=== PATIENT | male | born 1960 | race Caucasian/White ===

== ENCOUNTER 2019-08-02 15:37 | Emergency (ER) | payer BC ==
[~2019-08-02] VITALS: Ht 172.7 cm; Wt 81.0 kg
[~2019-08-02 15:37] MED LIST: LEVO75TA PO; LISI40TA4 PO; METF-517 PO; METO50TA7 PO; NITR0.4T51 SL; PER5325T PO; SIMV-42 PO
--- NOTE | 2019-08-02 17:40 | NUR ---
Pt has attempted to give a UA twice. I advised he drink the water provided and try again later.
[2019-08-02] MEDS ORDERED: LORazepam 1 MG tablet PO ONE (17:50)
[2019-08-02 18:19] LABS: CLARITY,URINE CLEAR (Clear); COLOR,URINE YELLOW (Yellow); GLUCOSE, URINE 100 mg/dl (Neg); KETONES,URINE TRACE mg/dl (Neg); LEUKOCYTE ESTERASE ,URINE NEGATIVE (Neg); NITRITES, URINE NEGATIVE (Neg); OCCULT BLOOD,URINE SMALL (Neg); PH,URINE 5.5 (4.8-8.0); PROTEIN,URINE >=300 mg/dl (Neg); UROBILINOGEN,URINE 0.2 E.U/dL (0.2-1.0)
[2019-08-02 18:23] LABS: UA COLLECTION TYPE CLN CATCH MIDSTREAM
[2019-08-02 18:24] LABS: BACTERIA,URINE NONE SEEN /HPF (Neg); MUCUS STRANDS FEW /LPF (Neg); RBC,URINE NONE SEEN /HPF (0-2); SQUAMOUS EPITHELIAL CELL,UR NONE SEEN /LPF (FEW); WBC,URINE 0-4 /HPF (0-4)
[2019-08-02 18:49] LABS: BASOPHILS # (AUTO) 0.1 X10'3 (0-0.2); BASOPHILS % (AUTO) 1.3 % (0-1); EOSINOPHILS # (AUTO) 0.2 X10'3 (0-0.9); EOSINOPHILS % (AUTO) 2.3 % (0-6); HEMATOCRIT 43.4 % (42.0-52.0); HEMOGLOBIN 14.6 g/dl (14.0-17.9); LYMPHOCYTES # (AUTO) 1.6 X10'3 (1.1-4.8); LYMPHOCYTES % (AUTO) 22.4 % (21-51); MEAN CORPUSCULAR HEMOGLOBIN 29.5 PG (27.0-31.0); MEAN CORPUSCULAR HGB CONC 33.6 g/dL (33.0-36.5); MEAN CORPUSCULAR VOLUME 87.7 FL (78-98); MEAN PLATELET VOLUME 8.5 FL (7.4-10.4); MONOCYTES # (AUTO) 0.7 X10'3 (0-0.9); MONOCYTES % (AUTO) 9.3 % (2-12); NEUTROPHILS # (AUTO) 4.5 X10'3 (1.8-7.7); NEUTROPHILS % (AUTO) 64.7 % (42-75); PLATELET COUNT 225 X10'3 (140-440); RED BLOOD COUNT 4.95 X10'6 (4.70-6.10); RED CELL DISTRIBUTION WIDTH 14.9 % (11.5-14.5)
[2019-08-02 19:10] LABS: ALANINE AMINOTRANSFERASE 17 U/L (12-78); ALBUMIN 2.6 G/DL (3.4-5.0); ALBUMIN/GLOBULIN RATIO 0.6 (1.1-1.5); ALKALINE PHOSPHATASE 155 IU/L (46-116); ANION GAP 11 (8-16); ASPARTATE AMINO TRANSFERASE 16 U/L (10-37); BILIRUBIN,TOTAL 0.2 MG/DL (0.1-1.0); BLOOD UREA NITROGEN 26 MG/DL (7-18); BUN/CREATININE RATIO 12.9 (5.4-32.0); CALCIUM 8.4 MG/DL (8.5-10.1); CHLORIDE 100 MMOL/L (99-107); CREATININE 2.01 MG/DL (0.60-1.10); GLUCOSE 121 MG/DL (70-104); POTASSIUM 3.8 MMOL/L (3.5-5.1); SODIUM 135 MMOL/L (135-145); TOTAL CARBON DIOXIDE 24.1 MMOL/L (24-32); TOTAL PROTEIN 6.9 G/DL (6.4-8.2); eGFR 34 ML/MIN
[2019-08-02 19:19] LABS: ETHANOL 0.015 GM/DL (0.0-0.010)
[2019-08-02 19:22] LABS: URINE AMPHETAMINE SCREEN NEGATIVE (Neg); URINE BARBITUATE SCREEN NEGATIVE (Neg); URINE BENZODIAZEPINES SCREEN NEGATIVE (Neg); URINE CANNABINOID SCREEN NEGATIVE (Neg); URINE COCAINE SCREEN NEGATIVE (Neg); URINE METHADONE SCREEN NEGATIVE (Neg); URINE OPIATE SCREEN POSITIVE (Neg); URINE PHENCYCLIDINE SCREEN NEGATIVE (Neg)
--- NOTE | 2019-08-02 19:44 | NUR ---
PT EATING DINNER, KIERRA WELL, NO N/V
--- NOTE | 2019-08-02 19:59 | NUR ---
PT IS 58 YEAR OLD MALE SAID HE WAS BROUGHT FROM WALL BY , "MY NEIGHBOR CALLED BECAUSE I TOLD THEM I WAS GOING TO SHOOT MYSELF WITH MY SHOT GUN", PT SAID HE DOES HAVE GUNS IN HIM HOME, PT LIVES BY HIMSELF AND IS TIRED OF "FEELING RESTLESS AND EMOTIONAL...I JUST START CRYING", PT SAID HE HAS FELT RESTLESS AND EMOTIONAL AFTER HAVE A STROKE 4 YEARS AGO, HE WOULD ALSO HELP ORGANIZING HIS MEDS AT HOME, PT IS CALM AND COOPERATIVE, GCS 15, RESP EVEN AND UNLABORED
[2019-08-02] MEDS ORDERED: METO50TA17 PO (20:19)
[2019-08-02] MEDS ORDERED: ATOR80TA PO (20:19)
[2019-08-02] MEDS ORDERED: QUET25TA PO (20:19)
[2019-08-02] MEDS ORDERED: GABA600T13 PO (20:19)
[2019-08-02] MEDS ORDERED: CLOP75TA15 PO (20:19)
--- NOTE | 2019-08-02 21:28 | NUR ---
PT HAS BEEN EVALUATED BY [facility] CLINICIAN, PT ASKING FOR MORE ATIVAN "TO HELP ME SLEEP",
[2019-08-02] MEDS ORDERED: nitroGLYCERIN 0.4mg SUBLingual tab SL PRN (21:45)
--- NOTE | 2019-08-02 21:54 | NUR ---
PT IS SLEEPING, RESP EVEN AND UNLABORED
[2019-08-02] MEDS: QUEtiapine 25mg tablet PO SCH (22:04)
--- NOTE | 2019-08-02 22:58 | NUR ---
PT IS SLEEPING, RESP EVEN AND UNLABORED
--- NOTE | 2019-08-02 23:59 | NUR ---
PT IS SLEEPING, RESP EVEN AND UNLABORED
--- NOTE | 2019-08-03 06:41 | NUR ---
Pt sleeping on right side. No distress noted.
[2019-08-03] MEDS ORDERED: clopidogrel 75mg tablet PO SCH (08:00)
[2019-08-03] MEDS ORDERED: levoTHYROXINE 100mcg tablet PO SCH (08:00)
[2019-08-03] MEDS: gabapentin 300mg capsule PO SCH ×3 (08:46→20:08)
[2019-08-03] MEDS: metFORMIN 500mg tablet PO SCH ×2 (08:47→20:08)
[2019-08-03] MEDS: metoprolol tartrate 50mg tablet PO SCH ×2 (08:49→20:08)
[2019-08-03] MEDS: LORazepam 1 MG tablet PO PRN ×2 (10:01→16:13)
[2019-08-03] MEDS ORDERED: nicotine 21mg patch - 24 hr TD ONE (11:10)
--- NOTE | 2019-08-03 13:40 | NUR ---
pt sitting up in bed eating lunch. Calm and cooperative.
--- NOTE | 2019-08-03 14:56 | NUR ---
pt resting quietly in bed.
--- NOTE | 2019-08-03 16:28 | NUR ---
pt walked up to RN station and verbalized his anxiety about being in the unit. Pt was tearful and stating his frustration about being in the hospital. RN sypathized with him. He returned back to bed. Pt asked RN for something for anxiety. RN administered PRN Ativan and provided pt with a snack per pt request. pt now laying in bed quietly.
[2019-08-03 17:05] VITALS: BP_DIAS 89
--- NOTE | 2019-08-03 19:58 | NUR ---
ANH BRAMBILA MC KAY MACHINE OPERATOR FABIOLA SALAZAR CALLED FOR PT CURRENT MEDICATION LIST FOR PT PLACEMENT.
[2019-08-03 20:08] VITALS: BP_SYST 171
[2019-08-03] MEDS: QUEtiapine 25mg tablet PO SCH (20:08)
--- NOTE | 2019-08-03 20:22 | NUR ---
Client to be admitted to [facility] RM 329 for Depression NOS per LOBO Clark/Eduard Hearn MD.
[2019-08-03] MEDS ORDERED: atorvastatin 20mg tablet PO SCH (21:00)
== END 2019-08-03 20:22 ==
LOC: ER 15:38
DX: F41.9 Anxiety disorder, unspecified (principal); Z60.2 Problems related to living alone; Z86.73 Personal history of transient ischemic attack (TIA), and cerebral infarction without residual deficits; Z79.899 Other long term (current) drug therapy
CPT/HCPCS: 36415; 80053; 80305; 80320; 81001; 84443; 85025; 99285

== ENCOUNTER 2019-08-03 20:51 | Inpatient (IN) | payer BC ==
[~2019-08-03] VITALS: Ht 172.7 cm; Wt 80.1 kg
[~2019-08-03 20:51] MED LIST changes: +ATOR80TA PO; +CLOP75TA15 PO; +GABA600T13 PO; -LISI40TA4 PO; +METO50TA17 PO; -METO50TA7 PO; -PER5325T PO; +QUET25TA PO; -SIMV-42 PO
[2019-08-04] MEDS ORDERED: acetaminophen 325mg tablet PO PRN (03:00)
[2019-08-04] MEDS ORDERED: magnesium hydroxide 30ml (MOM) UD suspension PO PRN (03:05)
[2019-08-04] MEDS ORDERED: mag hydrox/Alum hydrox/simeth 30ml oral suspension PO PRN (03:10)
--- NOTE | 2019-08-04 03:42 | NUR ---
ADMIT NOTE: Client BIB EMS after neighbors alerted police client made suicidal statements, and threats to shoot others, while in possession of a firearm. Client reported changes in behavior after having a CVA four years ago. Client states he "needs help", feels anxious and depressed. Reports increasing thoughts of suicide. Client arrived on the unit at 21:00 in a wheelchair, accompanied by Naheed Rubi. Affect and mood are anxious and depressed. Client is disheveled. Clients has unsteady gait and will be provided a wheelchair. Client uses cane at home. Physical assessment performed by Solis Rubi RN. Client was cooperative. Fell asleep shortly after admission.
[2019-08-04] MEDS ORDERED: nitroGLYCERIN 0.4mg SUBLingual tab SL PRN (04:05)
[2019-08-04] MEDS: gabapentin 300mg capsule PO SCH ×3 (07:51→21:00)
[2019-08-04] MEDS: metFORMIN 500mg tablet PO SCH ×2 (07:51→21:02)
[2019-08-04] MEDS: metoprolol tartrate 50mg tablet PO SCH ×2 (07:51→21:01)
[2019-08-04] MEDS: clopidogrel 75mg tablet PO SCH (07:52)
[2019-08-04] MEDS: levoTHYROXINE 100mcg tablet PO SCH (07:52)
[2019-08-04 08:00] VITALS: BP 137/63
[2019-08-04 13:02] LABS: HEMOGLOBIN A1C 6.8 % (4.5-6.2)
[2019-08-04 13:11] LABS: CHOL/HDL RATIO 6.3 (0.00-4.99); CHOLESTEROL 245 MG/DL (0-200); HDL CHOLESTEROL 39 MG/DL (35-60); LDL CHOLESTEROL 145 MG/DL (50-100); TRIGLYCERIDES 335 MG/DL (20-135)
--- NOTE | 2019-08-04 15:40 | NUR ---
Nursing Progress Note: Sixto Legal hold: 5150 expires 08/06 @ 2100 Client on voluntary/involuntary status for DTS. Report received from nurse with use of SERENE Ely RN. Why are they here: Client BIB EMS after neighbors alerted police client made suicidal statements, and threats to shoot others, while in possession of a firearm. Client reported changes in behavior after having a CVA four years ago. Client states he "needs help", feels anxious and depressed. Reports increasing thoughts of suicide. Assessment What has happened this shift: Patient sleeping at change of shift. Ambulated with assistance of FWW to [facility] room for breakfast. Requests information r/t admission to the unit. Has denied he was ever suicidal, states I was just cleaning my shot gun. Later in the day he inadvertently admits he was heavily drinking prior to cleaning his shot gun. Paitent states he would never harm himself, neighbors where concerned because everytime I try to speak, I just end up crying.. Compliant with 1:1 physical and MH assessment. States he has been sick with a cough for 3 weeks, Lung sounds clear throughout, reports thick greenish sputum (not observed by this card writer hand). Patient is also a heavy smoker. States he suffers with depression, but it is not worse than usual. Patient revealed he is fearful that he is loosing his memory, I only agreed to come in because I need help at home and I haven;t been able to get an S worker to help me with medications, dressing, and other needs. Spoke with sister on phone, appears to have good support. S/I, H/I: Denies A/VH: Denies Sleep: 6.25 ADL's: With assistance, did not shower today. Group attendance: Yes Were meds taken: Yes Any med S/E None observed Mental Status Exam Appearance: clean scrubs, hair brushed, no shower today Eye contact: direct Behavior:cooperative, gaurded Speech: clear, normal rate/rhythm Mood: Dispair Affect: blunted (may be related to effects from stroke) Thought process: Linear Thought Content: getting home Cognition: A & O X 4 (displays some memory impairment) Insight: Poor Judgment: Poor (drinking whiskey, cleaning firearm) Interventions PRN's used: None Therapeutic interventions: 1:1 therapeutic communication. Provide a safe and calm environment, provided assistance as needed with ADLs. Q 15 minute safety checks. Medication administration, evaluation of effectiveness, education and monitor for SE. Restraints/seclusion/emergency medication: N/A Justification of Continued Inpatient Treatment: Patient continues to have significant needs related to physical restriction s/p CVA. Admits depression 03/30, without adequate control of depressive symptoms patient could easily decompensate requiring readmission.
[2019-08-04] MEDS: LORazepam 1 MG tablet PO PRN (17:07)
[2019-08-04 19:46] VITALS: BP 147/82
[2019-08-04] MEDS: atorvastatin 20mg tablet PO SCH (21:00)
[2019-08-04] MEDS: zolpidem 5mg tablet PO SCH (21:01)
[2019-08-04] MEDS: QUEtiapine 25mg tablet PO SCH (21:01)
--- NOTE | 2019-08-05 03:44 | NUR ---
Nursing Progress Note: Legal hold: 5150 expires 08/06 @ 2100 Client on involuntary status for DTS. Report received from Marc ROSE with use of SBAR. Why are they here: Client BIB EMS after neighbors alerted police client made suicidal statements, and threats to shoot others, while in possession of a firearm. Client reported changes in behavior after having a CVA four years ago. Client states he "needs help", feels anxious and depressed. Reports increasing thoughts of suicide. Assessment What has happened this shift: Pt in room at start of shift. Immediately asked for PRN Ativan which he had at 1700. Pt started crying when talking. Per pt he can't help crying and it does not reflect the way he feels. He had only that one episode of crying this shift. The rest of the shift his affect was appropriate. Per pt he expects to return to his home in [place]. he needs an supervisor dry cleaning because his nephew just left. "all I need to someone to help me get up in the morning and to help me with my medications I get confused." Pt verbalized concern about sleeping "I have not had good sleep for weeks." Pt was asleep by HS med pass awoke easily immediately asked for Ativan. Accepted pleasantly that it was not due after meds pt went back to sleep. S/I, H/I: Denies A/VH: Denies Sleep: asleep at this time ADL's: With assistance, said he would like a shower in the AM. Group attendance: Went to group room for snack Were meds taken: Yes Any med S/E None observed Mental Status Exam Appearance: clean scrubs, hair brushed, Eye contact: direct Behavior:cooperative, guarded Speech: clear, normal rate/rhythm Mood: Depressed Affect: blunted Thought process: Linear Thought Content: getting home Cognition: A & O X 4 (displays some memory impairment) Insight: Poor Judgment: Poor Interventions PRN's used: None Therapeutic interventions: 1:1 therapeutic communication. Provide a safe and calm environment, provided assistance as needed with ADLs. Q 15 minute safety checks. Medication administration, evaluation of effectiveness, education and monitor for SE. Restraints/seclusion/emergency medication: N/A Justification of Continued Inpatient Treatment: Patient continues to have significant needs related to physical restriction s/p CVA. Admits depression 03/30, without adequate control of depressive symptoms patient could easily decompensate requiring readmission.
[2019-08-05] MEDS: metoprolol tartrate 50mg tablet PO SCH ×2 (07:51→20:24)
[2019-08-05] MEDS: gabapentin 300mg capsule PO SCH ×3 (07:52→20:22)
[2019-08-05] MEDS: levoTHYROXINE 100mcg tablet PO SCH (07:52)
[2019-08-05] MEDS: omega-3 acid ethyl esters 1GM capsule PO SCH ×2 (07:52→20:22)
[2019-08-05] MEDS: metFORMIN 500mg tablet PO SCH ×2 (07:52→20:23)
[2019-08-05] MEDS: clopidogrel 75mg tablet PO SCH (07:52)
[2019-08-05] MEDS ORDERED: sertraline 25mg tablet PO SCH (08:00)
[2019-08-05] MEDS: LORazepam 1 MG tablet PO PRN (08:07)
[2019-08-05 08:19] VITALS: BP 154/96
[2019-08-05] MEDS: hydrOXYzine 25 MG tablet PO PRN (10:44)
--- NOTE | 2019-08-05 12:16 | NUR ---
Nursing Progress Note: Legal hold: 5150 expires 08/06 @ 2100 Client on involuntary status for DTS. Report received from Gabriela ROSE with use of SBAR. Why are they here: Client BIB EMS after neighbors alerted police client made suicidal statements, and threats to shoot others, while in possession of a firearm. Client reported changes in behavior after having a CVA four years ago. Client states he "needs help", feels anxious and depressed. Reports increasing thoughts of suicide. Assessment What has happened this shift: Pt's FSBG this am AC breakfast was 112. Pt stated he felt "tired." Pt ambulated to dining room with FWW for breakfast, pt has some mild left sided weakness. Pt cooperative with medications. Pt requested prn Ativan during breakfast stating that he felt anxious. Ativan 1 mg administered at 0807 with good effect. Pt denied depression, SI/HI/AH/VH, stated "I'm good, the Zoloft is working, I'm ready to go home." At around 1030, pt approached this RN to ask for another Ativan, "they're as needed and I need one, I just found out I'm not going home today." Pt's face contorted and he became tearful as he continued to walk back to his room. Explained that his prn Ativan order was Q 6H PRN, offered some Atarax. Pt was agreeable, stated, "I need something." Medicated with Atarax 50 mg at 1044. Provided some active listening. Pt expressed his frustration over his living situation. Pt stated his stepson helped him organize his pills but "he just up and left me." Pt states that he has trouble getting dressed, "I can't turn my shirts right side up." Pt grabbed a long sleeved shirt he had sitting on the bed next to him. He actually was able to get the sleeves out of the shirt, commented so. Pt stated that it was an easy shirt. Pt states he needs a worker and he needs help finding one. Pt states that his sister is not able to help him organize his pills. Pt stated that he has a neighbor in the same situation, they both need a caregiver. Pt states his income is $1600 per month. S/I, H/I: Pt denies A/VH: Pt denies Sleep: Pt slept 8.75 hours per noc shift report ADL's: Needs some help with dressing, ambulates with FWW Group attendance: No, too upset to go to morning group today. Were meds taken: Yes Any med S/E: None noted or reported Mental Status Exam Appearance: clean scrubs, hair brushed Eye contact: Good Behavior: Cooperative, mildly guarded Speech: clear, audible Mood: Anxious Affect: Labile, bursts into tears frequently, reportedly an effect of CVA in 2015 Thought process: Linear Thought Content: Needs a caregiver, wants to go home Cognition: A/O X 4, some forgetfulness/short term memory impairment Insight: Poor Judgment: Poor Interventions PRN's used: Ativan 1 mg, Atarax 50 mg Therapeutic interventions: 1:1 assessment, establishment of rapport, active listening, therapeutic communication, medication administration/education/monitoring, maintained a safe, therapeutic environment, provided assistance as needed with ADLs,Q 15 minute safety checks. Restraints/seclusion/emergency medication: N/A Justification of Continued Inpatient Treatment: Pt needs crisis stabilization and medication adjustment and monitoring in a safe,therapeutic environment as well as a safe discharge plan once stable for pt safety and to prevent readmission.
--- NOTE | 2019-08-05 12:50 | NUR ---
Pt's FSBG was 154 AC lunch, pt stated, "that's because I had some hot chocolate." Addendum: 08/05/19 at 1251 by Tiffany Morris RN (Lee) Amended: Links added.
[2019-08-05] MEDS: acetaminophen 325mg tablet PO PRN (12:55)
[2019-08-05 20:00] VITALS: BP 151/81
[2019-08-05] MEDS: zolpidem 5mg tablet PO SCH (20:23)
[2019-08-05] MEDS: atorvastatin 20mg tablet PO SCH (20:23)
[2019-08-05] MEDS: QUEtiapine 25mg tablet PO SCH (20:24)
--- NOTE | 2019-08-06 01:20 | NUR ---
Nursing Progress Note: Legal hold: 5150 expires 08/06 @ 2100 Client on involuntary status for DTS. Report received from ROSE Tran with use of SBAR. Why are they here: Client BIB EMS after neighbors alerted police client made suicidal statements, and threats to shoot others, while in possession of a firearm. Client reported changes in behavior after having a CVA four years ago. Client states he "needs help", feels anxious and depressed. Reports increasing thoughts of suicide. Assessment What has happened this shift: Patient is in his room sleeping at change of shift. he is later greeted in the hallway. Patient denies depression and reports "good" mood, but has bouts of crying on and off during interaction. Patients reported mood is not congruent with his affect. He denies SI and states it was a miscommunication with his friend. "States "I was cleaning my gun and my friend thought I was going to put it in my mouth and kill myself." "I was not going to shoot myself, I was drinking." Patient denies current SI, AH,VH, HI. He is complaint with HS medications. Patient does get up and hits call light several times this evening, each time patient appeared confused and even wandered the wilson and had to be redirected back to his correct room. Patient each time hitting the call light asked staff "Where is the designated smoking area?" He had to be reminded he was in a hospital. patient did eventually fall asleep after being assisted into bed and provided an warm blanket. S/I, H/I: Denies A/VH: Denies Sleep: Currently sleeping, see sleep assessment ADL's: With assistance Group attendance: No groups this shift Were meds taken: Yes Any med S/E None observed Mental Status Exam Appearance: Unkempt Eye contact: Direct Behavior: Tearful during interactions, appears confused later in the evening Speech: Clear, normal rate/rhythm Mood: Depressed (However patient denies, and reports "Good") Affect: Blunted, depressed, not congruent with stated mood Thought process: Linear, appeared confused during later evening Thought Content: Getting sleep Cognition: A & O X 4 (displays some memory impairment) Insight: Poor Judgment: Poor Interventions PRN's used: None Therapeutic interventions: 1:1 therapeutic communication. Provide a safe and calm environment, provided assistance as needed with ADLs. Q 15 minute safety checks. Medication administration, evaluation of effectiveness, education and monitor for SE. Restraints/seclusion/emergency medication: N/A Justification of Continued Inpatient Treatment: Patient continues to have significant needs related to physical restriction s/p CVA. Admits depression 03/30, without adequate control of depressive symptoms patient could easily decompensate requiring readmission.
[2019-08-06 08:00] VITALS: BP 127/74
[2019-08-06] MEDS ORDERED: sertraline 50mg tablet PO SCH (08:00)
[2019-08-06] MEDS: clopidogrel 75mg tablet PO SCH (08:26)
[2019-08-06] MEDS: metFORMIN 500mg tablet PO SCH ×2 (08:26→20:16)
[2019-08-06] MEDS: levoTHYROXINE 100mcg tablet PO SCH (08:26)
[2019-08-06] MEDS: gabapentin 300mg capsule PO SCH ×3 (08:26→20:16)
[2019-08-06] MEDS: metoprolol tartrate 50mg tablet PO SCH ×2 (08:26→20:16)
[2019-08-06] MEDS: acetaminophen 325mg tablet PO PRN (08:27)
[2019-08-06] MEDS: omega-3 acid ethyl esters 1GM capsule PO SCH ×2 (08:31→20:16)
[2019-08-06] MEDS: nicotine 21mg patch - 24 hr TD SCH (08:54)
--- NOTE | 2019-08-06 11:21 | NUR ---
PHONE CALL TO SISTER Called Ct's sister, Amber Nino (ph# [phone]) to gather additional information. Left message requesting a call back. RUTH Lawrence
--- NOTE | 2019-08-06 14:13 | NUR ---
PSYCHOSOCIAL ASSESSMENT Roberta is a 58 y/o single male who was placed on 5150 for danger to self and others. Roberta lives alone in [place]. Ct reported he was cleaning one of his guns and his neighbor thought he was suidical. Per record review, Ct at some point had put a gun in his mouth. It was also reported that Ct had grabbed a gun and threatened to shoot someone. Ct told principal technical writer that his guns are locked in a safe in his house and that his neighbor is going to take them for safekeeping. Ct reported he needs help at home managing his home, shopping, medications, etc. He reported he had hired someone in the past to help him and it did not work out. He reported he had applied for IHSS previously and made too much money to qualify. Ct stated he wants to "get some sleep and east some good food" when asked about his short term goals. Roberta was not very forthcoming with information. There were times where what he told principal technical writer contradicted what he had told others (e.g; he had previously stated his neighbor had already removed the guns from his home whereas he told principal technical writer the guns were locked in his gun safe in his home). RUTH Lawrence Addendum: 08/06/19 at 1413 by Zeynep Wagner Amended: Links added.
--- NOTE | 2019-08-06 17:16 | NUR ---
Nursing Progress Note: Legal hold: 5250 Client on involuntary status for DTS. Report received from Gladis ROSE with use of SBAR. Why are they here: Client BIB EMS after neighbors alerted police client made suicidal statements, and threats to shoot others, while in possession of a firearm. Client reported changes in behavior after having a CVA four years ago. Client states he "needs help", feels anxious and depressed. Reports increasing thoughts of suicide. Assessment What has happened this shift: Pt stated that he was depressed today because he can't sleep, "sick and tired 'cause I can't sleep, sleep deprivation is the worst." Pt stated that he takes Rosalina [place] plus at home to help him sleep "or whatever I can get." Addressed episode of confusion last night after taking Ambien with pt putting the call light on multiple times to ask where the designated smoking area was. Pt stated that "I was dreamin' I was smokin'. I never dreamed about smoking before." Asked pt if he would like a nicotine patch. Pt replied, "I already have one, it's not working." Pt lifted up his shirt to show this RN a nicotine patch dated 08/03/19 on his left shoulder. Removed old patch, obtained order for nicotine patch 21 mg daily and applied to pt's right shoulder. Pt expressed thanks. When this RN went to leave the room, pt asked, "Excuse me? I haven't gotten anything for sleep today." Educated pt that we don't give sleeping pills to pts during the day. Pt said "okay, I'm going to try and sleep." This RN did not note any episodes of tearfulness today. Pt's finger stick blood glucose has remained stable. FSBG AC breakfast was 110, AC lunch was 111. Pt continues on metformin. Discussed stable blood sugars with LOBO Akhtar who ordered to decrease fingersticks to once daily fasting AC breakfast. Received phone call from pt's sister and RIZWANA Nino. Sister states that she lives in [place]. Sister reported that pt owns the house in [place] but that it isn't worth much. She states that it is a mess and that pt just throws garbage on the floor. Sister confirms that pt's stepson had been living with him but that it wasn't a good situation as step son, his , and his 3 kids had all been living at the house. The kids and the would not even speak to the patient and they left the house dirtier than it was before. Amber expressed frustration at her brother not being able to qualify for medi-tommy and IHSS because of his income. She had tried to get him into [facility] in [place] to be closer to her so she could help more but [facility] does not allow smoking and pt adamantly refuses to quit. Sister will call SW to ask for any list of board and cares they may have in the area that may allow smoking. Sister plans to come and visit on . 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 He hurt his hip while walking around in the [place] there and so does receive some kind of disability money that pt calls workman's comp as a result. Pt told LOBO Akhtar that he fell in the snow before coming here and his right hip has hurt worse since. PA ordered R hip X-ray. Pt also has new orders to increase Seroquel to 50 mg HS, add Lamictal 25 mg HS, and decrease Zoloft back down to 25 mg daily. S/I, H/I: Pt denies A/VH: Pt denies Sleep: Pt slept 4.75 hours per noc shift report ADL's: Needs some help with dressing, ambulates with FWW Group attendance: Yes Were meds taken: Yes Any med S/E: None noted or reported Mental Status Exam Appearance: clean scrubs, hair brushed Eye contact: Good Behavior: Cooperative, participated more in unit activities today. Speech: clear, audible Mood: Depressed Affect: Blunted Thought process: Linear Thought Content: upset about not sleeping well, wants a cigarette. Cognition: A/O X 4, some forgetfulness/short term memory impairment Insight: Poor Judgment: Poor Interventions PRN's used: Tylenol 650 mg Therapeutic interventions: 1:1 assessment, active listening, therapeutic communication, medication administration/education/monitoring, maintained a safe, therapeutic environment, provided assistance as needed with ADLs,encouragement to attend groups, positive reinforcement, Q 15 minute safety checks. Restraints/seclusion/emergency medication: N/A Justification of Continued Inpatient Treatment: Pt needs crisis stabilization and medication adjustment and monitoring in a safe,therapeutic environment as well as a safe discharge plan once stable for pt safety and to prevent readmission.
[2019-08-06 20:00] VITALS: BP 171/79
[2019-08-06] MEDS: atorvastatin 20mg tablet PO SCH (20:15)
[2019-08-06] MEDS: zolpidem 5mg tablet PO SCH (20:18)
[2019-08-06] MEDS: QUEtiapine 25mg tablet PO SCH (20:18)
[2019-08-06] MEDS: lamoTRIgine 25mg tablet PO SCH (20:18)
--- NOTE | 2019-08-07 04:15 | NUR ---
Nursing Progress Note: Legal hold: 5250 Client on involuntary status for DTS. Report received from MARIE Navarro with use of SBAR. Why are they here: Client BIB EMS after neighbors alerted police client made suicidal statements, and threats to shoot others, while in possession of a firearm. Client reported changes in behavior after having a CVA four years ago. Client states he "needs help", feels anxious and depressed. Reports increasing thoughts of suicide. Assessment What has happened this shift: Patient walking the unit with his FFW at change of shift. He ambulates steadily with the FFW to the recreation room where he watches TV and interacts with other peers for a bit before returning to his room. he is agreeable to 1:1 at his bedside. Patient denies SI, HI, AH, VH but is still reporting depression and difficulty sleeping. Patient is up and down from room to group room throughout the evening interacting with others appropriately. He is compliant with medication pass and verbalizes understanding medication changes when educated about them. patient does not want to remove Nicotine Patch this evening with understanding if he has difficulty sleeping nurse can be informed and it can be removed. Patient requests ear plugs this evening in hopes to sleep better. Patient is noted to not get up this evening or to hit call light. No confusion noted this evening as well. S/I, H/I: Denies A/VH: Denies Sleep: Currently sleeping, see sleep assessment ADL's: With minimal assistance for dressing Group attendance: No groups this shift Were meds taken: Yes Any med S/E None observed Mental Status Exam Appearance: Well groomed, wearing green scrubs Eye contact: Direct Behavior: Calm, cooperative Speech: Clear, normal rate/rhythm Mood: Depressed, patient confirmed this this evening Affect: Blunted Thought process: Linear Thought Content: Getting sleep Cognition: A & O X 4 (displays some memory impairment) Insight: Poor Judgment: Poor Interventions PRN's used: None Therapeutic interventions: 1:1 therapeutic communication. Provide a safe and calm environment, provided assistance as needed with ADLs. Q 15 minute safety checks. Medication administration, evaluation of effectiveness, education and monitor for SE. Restraints/seclusion/emergency medication: N/A Justification of Continued Inpatient Treatment: Patient continues to have significant needs related to physical restriction s/p CVA. Admits depression 03/30, without adequate control of depressive symptoms patient could easily decompensate requiring readmission.
[2019-08-07] MEDS: levoTHYROXINE 100mcg tablet PO SCH (07:38)
[2019-08-07] MEDS: nicotine 21mg patch - 24 hr TD SCH (07:38)
[2019-08-07] MEDS: LORazepam 1 MG tablet PO PRN ×2 (07:38→16:48)
[2019-08-07] MEDS: metFORMIN 500mg tablet PO SCH ×2 (07:38→21:17)
[2019-08-07] MEDS: metoprolol tartrate 50mg tablet PO SCH ×2 (07:38→21:18)
[2019-08-07] MEDS: gabapentin 300mg capsule PO SCH ×3 (07:39→21:17)
[2019-08-07] MEDS: clopidogrel 75mg tablet PO SCH (07:39)
[2019-08-07] MEDS: omega-3 acid ethyl esters 1GM capsule PO SCH ×2 (07:50→21:17)
[2019-08-07] MEDS: sertraline 50mg tablet PO SCH (07:50)
[2019-08-07 08:57] VITALS: BP 159/87
--- NOTE | 2019-08-07 12:03 | NUR ---
LEFT MSG FOR SISTER Left message asking Ct's sister, Amber (ph# [phone]) to call me back regarding Ct's guns and his Rx for Nudexta. RUTH Lawrence
--- NOTE | 2019-08-07 15:36 | NUR ---
PHONE CALL W/SISTER Amber (ph# [phone]) returned video game script writer's call. She reported she has to check with [facility] to see if Sixto's insurance will cover the Nudexta. She reported that she and her can remove the guns from Sixto's home this weekend as long as it is not snowing as they do not have a vehicle equipped for the snow. She reported Sixto was previously interested in [employer] for housing but decided he did not want to apply there because it is no smoking. She reported she spoke to Sixto today and he mentioned he no longer wants to smoke. Surgical Nurse will try to get an application for [employer] and assist him with it. Amebr reported if Sixto lives in [place] she would be able to help him more. She reported his step-son and his and 3 kids had been living with Sixto until beginning of Jun. She reported there is a neighbor couple that Sixto has been hanging out with and she is leary of these people's intentions. They came to visit Sixto yesterday. Amber reported she will let video game script writer know when the guns are removed from Sixto's home. RUTH Lawrence
[2019-08-07] MEDS: acetaminophen 325mg tablet PO PRN (16:48)
--- NOTE | 2019-08-07 18:01 | NUR ---
Nursing Progress Note: Legal hold: 5250 Client on involuntary status for DTS. Report received from Gladis ROSE with use of SBAR. Why are they here: Client BIB EMS after neighbors alerted police client made suicidal statements, and threats to shoot others, while in possession of a firearm. Client reported changes in behavior after having a CVA four years ago. Client states he "needs help", feels anxious and depressed. Reports increasing thoughts of suicide. Assessment What has happened this shift: Pt is resting in bed peacefully at shift change. Pt denies SI, HI, and A/VH. Pt has right hip pain,PRN Tylenol given and Ativan given because Pt states that his anxiety was 7/10. He states "I am so antsy right now". He is pleasant and cooperative with care and takes his medications as ordered. He appears to be minimizing the events that lead to his current hospital stay. He states "I was never suicidal, I just stuck the gun in my mouth to get at my caregiver, I wanted to get a rise out of her". S/I, H/I: Pt denies A/VH: Pt denies Sleep: naps intermittently throughout the day. ADL's: Needs some help with dressing, making his bed, ambulates with FWW Group attendance: Yes Were meds taken: Yes Any med S/E: None noted or reported Mental Status Exam Appearance: clean scrubs, hair brushed, sweater is on inside out and scrub top is on backwards Eye contact: Good Behavior: Cooperative, participated in some unit activities today. Speech: clear normal rate and herlinda Mood: Depressed Affect: Blunted Thought process: Linear Thought Content: pain in right hip, anxious, not sleeping well, "I am so hungry" Cognition: A/O X 4, some forgetfulness/short term memory impairment Insight: Poor Judgment: Poor Interventions PRN's used: Tylenol 650 mg Therapeutic interventions: 1:1 assessment, active listening, therapeutic communication, medication administration/education/monitoring, maintained a safe, therapeutic environment, provided assistance as needed with ADLs,encouragement to attend groups, positive reinforcement, Q 15 minute safety checks. Restraints/seclusion/emergency medication: N/A Justification of Continued Inpatient Treatment: Pt needs crisis stabilization and medication adjustment and monitoring in a safe,therapeutic environment as well as a safe discharge plan once stable for pt safety and to prevent readmission.
--- NOTE | 2019-08-07 18:52 | NUR ---
Nursing Progress Note: Legal hold: 5250 Client on involuntary status for DTS. Report received from Gladis ROSE with use of SBAR. Why are they here: Client BIB EMS after neighbors alerted police client made suicidal statements, and threats to shoot others, while in possession of a firearm. Client reported changes in behavior after having a CVA four years ago. Client states he "needs help", feels anxious and depressed. Reports increasing thoughts of suicide. Assessment What has happened this shift: Pt was napping intermittently throughout the day in between meals. He appears depressed and is isolating some. Pt's finger stick blood glucose has remained stable. FSBG AC breakfast was 116. Pt is statin that he is very hungry and asks for snacks even after he has ate his meal. He appears to have some difficulty with his short term memory, often asking for something, getting what he asked for, and then asking for that same thing again. He reports that he never intended to commit suicide and that he "put the gun in my mouth to get at my caregiver". He appears to be minimizing the events that lead to his current hospital stay. S/I, H/I: Pt denies A/VH: Pt denies Sleep: naps often throughout the day. ADL's: Needs some help with dressing, and making his bed, ambulates with FWW Group attendance: Yes Were meds taken: Yes Any med S/E: None noted or reported Mental Status Exam Appearance: clean scrubs, hair brushed, jacket on inside out and scrub shirt on backwards Eye contact: Good Behavior: Cooperative, participated in unit activities today. Speech: clear, audible Mood: Depressed with intermittent brightening Affect: Blunted Thought process: Linear Thought Content: "I am hungry" Cognition: A/O X 4, forgetfulness/short term memory impairment Insight: Poor Judgment: Poor Interventions PRN's used: Tylenol 650 mg Therapeutic interventions: 1:1 assessment, active listening, therapeutic communication, medication administration/education/monitoring, maintained a safe, therapeutic environment, provided assistance as needed with ADLs,encouragement to attend groups, positive reinforcement, Q 15 minute safety checks. Restraints/seclusion/emergency medication: N/A Justification of Continued Inpatient Treatment: Pt needs crisis stabilization and medication adjustment and monitoring in a safe,therapeutic environment as well as a safe discharge plan once stable for pt safety and to prevent readmission.
[2019-08-07 20:00] VITALS: BP 145/77
[2019-08-07] MEDS: atorvastatin 20mg tablet PO SCH (21:17)
[2019-08-07] MEDS: zolpidem 5mg tablet PO SCH (21:18)
[2019-08-07] MEDS: QUEtiapine 25mg tablet PO SCH (21:18)
[2019-08-07] MEDS: lamoTRIgine 25mg tablet PO SCH (21:18)
--- NOTE | 2019-08-08 03:01 | NUR ---
Nursing Progress Note: Legal hold: 5250 Client on involuntary status for DTS. Report received from MARIE Trammell with use of SBAR. Why are they here: Client BIB EMS after neighbors alerted police client made suicidal statements, and threats to shoot others, while in possession of a firearm. Client reported changes in behavior after having a CVA four years ago. Client states he "needs help", feels anxious and depressed. Reports increasing thoughts of suicide. Assessment What has happened this shift: Patient walking the unit with his FFW at change of shift. He ambulates steadily with the FFW to the group room and easily back to his room. he reports depression, but still minimizes the events that led up to patient coming to the unit. He denies SI, HI, VH and AH at this time. Patient is pleasant, friendly and cooperative, but appears to be a bit forgetful at times, not remembering where he set things or hitting the call light a second time to ask for something even though he had already talk to staff about it. He is complain with his HS medications and puts himself to bed this evening. S/I, H/I: Denies A/VH: Denies Sleep: Currently sleeping, see sleep assessment ADL's: With minimal assistance for dressing Group attendance: No groups this shift Were meds taken: Yes Any med S/E None observed Mental Status Exam Appearance: Well groomed, wearing green scrubs Eye contact: Direct Behavior: Calm, cooperative Speech: Clear, normal rate/rhythm Mood: Depressed Affect: Blunted Thought process: Linear Thought Content: Getting sleep, medications Cognition: A & O X 4 (displays some memory impairment) Insight: Poor Judgment: Poor Interventions PRN's used: None Therapeutic interventions: 1:1 therapeutic communication. Provide a safe and calm environment, provided assistance as needed with ADLs. Q 15 minute safety checks. Medication administration, evaluation of effectiveness, education and monitor for SE. Restraints/seclusion/emergency medication: N/A Justification of Continued Inpatient Treatment: Patient continues to have significant needs related to physical restriction s/p CVA. Admits depression 03/30, without adequate control of depressive symptoms patient could easily decompensate requiring readmission.
[2019-08-08] MEDS: sertraline 50mg tablet PO SCH (07:44)
[2019-08-08] MEDS: gabapentin 300mg capsule PO SCH ×3 (07:44→20:12)
[2019-08-08] MEDS: levoTHYROXINE 100mcg tablet PO SCH (07:44)
[2019-08-08] MEDS: nicotine 21mg patch - 24 hr TD SCH (07:45)
[2019-08-08] MEDS: metFORMIN 500mg tablet PO SCH ×2 (07:45→20:13)
[2019-08-08] MEDS: omega-3 acid ethyl esters 1GM capsule PO SCH ×2 (07:45→20:21)
[2019-08-08] MEDS: clopidogrel 75mg tablet PO SCH (07:45)
[2019-08-08] MEDS: metoprolol tartrate 50mg tablet PO SCH ×2 (07:46→20:12)
[2019-08-08 08:20] VITALS: BP 160/94
[2019-08-08] MEDS: loperamide 2mg capsule PO PRN ×2 (10:32→19:06)
--- NOTE | 2019-08-08 11:37 | NUR ---
HOUSING Met with Ct to see if he would like to apply for housing at [facility] in [place]. He declined and stated he wants to return to his home in [place]. RUTH Lawrence
--- NOTE | 2019-08-08 11:48 | NUR ---
Eating well and meeting needs with 75-100% PO intake carb controlled diet. Taking metformin with history of DM, A1c is 6.8. No nutrition concerns at this time. Will continue to follow. Recommend: 1. continue carb controlled diet 2. bowel care as needed 3. weekly wts Addendum: 08/08/19 at [address] Amended: Links added.
--- NOTE | 2019-08-08 17:09 | NUR ---
Nursing Progress Note: Legal hold: 5250 for DTS Report received from MARIE Griffith with use of SBAR. Why are they here: Client BIB EMS after neighbors alerted police client made suicidal statements, and threats to shoot others, while in possession of a firearm. Client reported changes in behavior after having a CVA four years ago. Client states he "needs help", feels anxious and depressed. Reports increasing thoughts of suicide. Assessment What has happened this shift: Patient lying in bed at change of shift. Met with this RN for 1:1 assessment at the bedside after breakfast. Pt makes minimal eye contact with this RN, answering most of the questions with brief one word responses and his eyes closed. Pt became tearful when stating that he is going to miss his best friend coming to visit him from the [place] area, but suddently stopped crying and changed topic. Encouraged patient to contact his friend to visit him here in the hospital. Pt continues to minimize symptoms of depression and denies S/I. States his mood is "fine". C/O diarrhea throughout the day. Imodium 2 mg administered x1. Encouraged to drink adequate fluids. S/I, H/I: denies A/VH: denies Sleep: Slept 7.5 hours ADL's: showered independently Group attendance: attended rec group this AM and part of art therapy Were meds taken: yes Any med S/E None observed or reported Mental Status Exam Appearance: Well groomed, wearing green scrubs Eye contact: poor eye contact during interview Behavior: cooperative, fixates/worries Speech: Clear, normal rate/rhythm Mood: "I'm fine", no complaints Affect: blunted Thought process: linear, goal directed Thought Content: wanting to go home Cognition: A&O X 4 Insight: poor Judgment: poor Interventions PRN's used: Imodium 2mg x1 Therapeutic interventions: 1:1 therapeutic communication. Provide a safe and calm environment, provided assistance as needed with ADLs. Q 15 minute safety checks. Medication administration, education and monitor, for SE. Restraints/seclusion/emergency medication: N/A Justification of Continued Inpatient Treatment: Patient continues to have significant needs related to physical restriction s/p CVA. Without adequate control of depressive symptoms patient could easily decompensate requiring readmission.
[2019-08-08 20:00] VITALS: BP 161/81
[2019-08-08] MEDS: atorvastatin 20mg tablet PO SCH (20:11)
[2019-08-08] MEDS: QUEtiapine 25mg tablet PO SCH (20:12)
[2019-08-08] MEDS: zolpidem 5mg tablet PO SCH (20:12)
[2019-08-08] MEDS: lamoTRIgine 25mg tablet PO SCH (20:13)
[2019-08-08] MEDS: hydrOXYzine 25 MG tablet PO PRN (20:21)
--- NOTE | 2019-08-09 01:11 | NUR ---
Nursing Progress Note: Legal hold: 5250 Exp 08/20 @ 1139 Client on involuntary status for DTS. Report received from MARIE Cummings with use of SBAR. Why are they here: Client BIB EMS after neighbors alerted police client made suicidal statements, and threats to shoot others, while in possession of a firearm. Client reported changes in behavior after having a CVA four years ago. Client states he "needs help", feels anxious and depressed. Reports increasing thoughts of suicide. Assessment What has happened this shift: Pt is sitting in his room at shift change. This television script writer introduces self and establishes rapport. Pt c/o of diarrhea and "not feeling well." Pt is administered Imodium. Pt is needing to wear depends due to not being able to make to bathroom. Pt is compliant with 1:1 assessment. Pt reports during assessment "I am lonely and don't like being by myself." Pt begins to cry "My step son stole his dogs ashes and something (couldn't decipher what pt said) his grandfather had given him. Pt feels "all this loneliness started after his stroke. Pt states "I just need some help with my medications, I have a lot of medications. Pt states he makes to much money for [facility]. Pt s/p stoke and uses a FWW for ambulating, pt has left side weakness. Pt c/o of intermittent cough and would like something for that - will endorse to next shift. Pt lungs are clear. Pt denies SI and denies that he was ever suicidal "I was cleaning my gun and my neighbor thought I was going to shoot myself." Pt does report feeling depressed. Pt reports being or wanting to be prescribed Nuedexta to help with his crying episodes. Pt opted to keep Nicotine patch on, even when adverse side effects were given. S/I, H/I: None reported or observed. A/VH: None reported or observed. Sleep: Currently sleeping. No sleep aid required. Refer to Sleep Assessment for hours. ADL's: With minimal assistance for dressing. Some left side weakness. Group attendance: cage shift manager, no group. Were meds taken: Medications taken without incident. Any med S/E: None reported or observed. Mental Status Exam Appearance: Disheveled Eye contact: Poor, pt looking down a lot Behavior: Depressed, crying, minimizing Speech: Clear, soft, normal rate/rhythm Mood: Depressed Affect: Constricted Thought process: Linear Thought Content: His diarrhea, "not feeling well" Cognition: A & O X 4 (displays some memory impairment) Insight: Poor Judgment: Poor Interventions PRN's used: Imodium, Atarax Therapeutic interventions: 1:1 therapeutic communication. Provide a safe and calm environment, provided assistance as needed with ADLs. Medication administration/education/monitoring, encouraged fluid intake; Q 15 minute safety checks. Restraints/seclusion/emergency medication: N/A Justification of Continued Inpatient Treatment: Patient continues to have significant needs related to physical restriction s/p CVA. Admits depression 03/30, without adequate control of depressive symptoms patient could easily decompensate requiring readmission.
[2019-08-09 05:55] VITALS: BP 124/61
--- NOTE | 2019-08-09 05:55 | NUR ---
Pt was up in the shower do to a stool incontinent episode as pt was stepping into his scrubs pt slipped and fell. This was an observed incident. This technical publications writer was outside the door and heard the patient state sh. When entering the shower area the pt was on his hands and knees. Pt was A&O x4 states "I hit my head on the toilet." Pt has a small red area on top of head, but no open skin. Vitals were taken BP 124/61; HR 54; RR 14; T 98.4. Called hospitalist recreation instructor Dr. Jon. She stated to monitor pt q2h x4. If any neuro changes to notify recreation instructor. Will endorse to day shift and complete appropriate forms. Addendum: 08/09/19 at 0704 by Gisella Diaz RN Correction: This was an unwitnessed fall.
[2019-08-09 08:00] VITALS: BP 137/55
[2019-08-09] MEDS: sertraline 50mg tablet PO SCH (08:12)
[2019-08-09] MEDS: nicotine 21mg patch - 24 hr TD SCH (08:12)
[2019-08-09] MEDS: metoprolol tartrate 50mg tablet PO SCH ×2 (08:13→20:40)
[2019-08-09] MEDS: clopidogrel 75mg tablet PO SCH (08:13)
[2019-08-09] MEDS: levoTHYROXINE 100mcg tablet PO SCH (08:13)
[2019-08-09] MEDS: gabapentin 300mg capsule PO SCH ×3 (08:13→20:40)
[2019-08-09] MEDS: metFORMIN 500mg tablet PO SCH ×2 (08:13→20:39)
[2019-08-09] MEDS: omega-3 acid ethyl esters 1GM capsule PO SCH ×2 (08:44→20:39)
--- NOTE | 2019-08-09 13:03 | NUR ---
DISCHARGE Attempted to make Ct follow up appt with his PCP, Dr Khan. The office is closed until 08/16/19. Provided Ct and his sister with information for home health assistance in [place] (info in discharge paperwork). Called [facility]PS and faxed a referral. [facility], [facility], reported they had contact with Ct in 2018 and will make contact again to offer assistance. Called Ct's sister, Amber (ph#[phone]) and informed her of this. RUTH Lawrence
--- NOTE | 2019-08-09 13:17 | NUR ---
GUN REMOVAL Met with Ct's sister, Amber, with [employer], to discuss removing Ct's gun from his home. Plan is for Amber and her to transport Ct home tomorrow and remove the guns at that time. RUTH Lawrence
[2019-08-09] MEDS ORDERED: NICO-687 TD (14:14)
[2019-08-09] MEDS ORDERED: LEVO100T9 PO (14:14)
[2019-08-09] MEDS ORDERED: SERT50TA10 PO (14:14)
[2019-08-09] MEDS ORDERED: LAMO25TA5 PO (14:14)
[2019-08-09] MEDS ORDERED: QUET25TA34 PO (14:14)
--- NOTE | 2019-08-09 16:08 | NUR ---
Nursing Progress Note: FATOU Legal hold: 5250 Exp 08/20 @ 1139 Client on involuntary status for DTS. Report received from MARIE Obando with use of SBAR. Why are they here: Client BIB EMS after neighbors alerted police client made suicidal statements, and threats to shoot others, while in possession of a firearm. Client reported changes in behavior after having a CVA four years ago. Client states he "needs help", feels anxious and depressed. Reports increasing thoughts of suicide. Assessment What has happened this shift: Pt is in the shower d/t incontinence at shift change. At some point in the shower pt fell and bumped his head on toilet. Q2hr Neuro checks performed, all WNL. Pt c/o of diarrhea and tiredness today. Reports the tiredness is not d/t his fall and that it is normal for him. Pt is compliant with 1:1 assessment. Pt does report feeling depressed. He is rather guarded and does not engage in conversation easily. He prefers to sleep most of the day and sleeps with one leg hanging off of his bed. Pt uses FWW. He denies any SEs to medications, none were objectively observed. Pt eager to go home and setup care for himself. He reports he is often lonely and feels this is the root of his problems. S/I, H/I: None reported or observed. A/VH: None reported or observed. Sleep: 7.5hrs NOC ADL's: FWW, minimal assistance for dressing. Mild left side weakness. Group attendance: Yes Were meds taken: Medications taken as ordered Any med S/E: None reported or observed Mental Status Exam Appearance: Disheveled Eye contact: Poor, closed eyes or looking down Behavior: Depressed, isolative Speech: Clear, soft, normal rate/rhythm Mood: Depressed & tired Affect: Constricted, guarded Thought process: Linear Thought Content: Tiredness & diarrhea Cognition: A & O X 4 Insight: Poor Judgment: Poor Interventions PRN's used: Therapeutic interventions: 1:1 therapeutic communication. Provide a safe and calm environment, provided assistance as needed with ADLs. Medication administration/education/monitoring, encouraged fluid intake; Q 15 minute safety checks. Restraints/seclusion/emergency medication: N/A Justification of Continued Inpatient Treatment: Patient continues to have significant needs related to physical restriction s/p CVA. Admits depression, without adequate control of depressive symptoms patient could easily decompensate requiring readmission. Plan is to D/C tomorrow with daughter, daughter plans to remove guns from home.
[2019-08-09 19:53] VITALS: BP 175/70
[2019-08-09] MEDS: lamoTRIgine 25mg tablet PO SCH (20:39)
[2019-08-09] MEDS: QUEtiapine 25mg tablet PO SCH (20:39)
[2019-08-09] MEDS: zolpidem 5mg tablet PO SCH (20:40)
[2019-08-09] MEDS: atorvastatin 20mg tablet PO SCH (20:40)
--- NOTE | 2019-08-10 | NUR ---
Nursing Progress Note: Legal hold: 5250 Client on involuntary status for DTS. Report received from MARIE Grfifith with use of SBAR. Why are they here: Client BIB EMS after neighbors alerted police client made suicidal statements, and threats to shoot others, while in possession of a firearm. Client reported changes in behavior after having a CVA four years ago. Client states he "needs help", feels anxious and depressed. Reports increasing thoughts of suicide. Assessment What has happened this shift: Pt was in his room during shift change sleeping. Pt is cooperative during 1:1 physical assessment and was compliant with all his PM meds. He said he had a good day but was feeling pretty tired and wanted to go to sleep early because he usually had trouble sleeping. When asked if he knows why he's here, he is minimizing this and doesn't really talk about the reasons. He denies S/I and states that his mood is good but does feel depressed because even though is getting discharged tomorrow, he might not be able to go home because his sister might not be able to drive here from [facility] due to snow. He started getting emotional when he was saying this and stated "I just want to go home, sit on my couch and watch TV but it probably wont happen anytime soon" Pt is able to ambulate on his FWW to the community area for a snack and later to make a phone call but then returned to his room where he remained isolative for the rest of the evening. S/I, H/I: Denies A/VH: Denies Sleep: Currently sleeping, see sleep assessment ADL's: Requires some assistance Group attendance: Attended HS snack Were meds taken: Yes Any med S/E None reported or observed. Mental Status Exam Appearance: Well groomed, wearing green scrubs Eye contact: Direct Behavior: Calm, cooperative Speech: Clear, normal rate/rhythm Mood: Depressed Affect: Blunted Thought process: Linear Thought Content: Getting sleep, medications, not being able to go home tomorrow Cognition: A & O X 4 Insight: Poor Judgment: Poor Interventions PRN's used: None Therapeutic interventions: 1:1 therapeutic communication. Provide a safe and calm environment, provided assistance as needed with ADLs. Q 15 minute safety checks. Medication administration, evaluation of effectiveness, education and monitor for SE. Restraints/seclusion/emergency medication: N/A Justification of Continued Inpatient Treatment: Patient continues to have significant needs related to physical restriction s/p CVA. Admits depression 03/30, without adequate control of depressive symptoms patient could easily decompensate requiring readmission.
[2019-08-10 08:00] VITALS: BP 151/79
[2019-08-10] MEDS: metoprolol tartrate 50mg tablet PO SCH (08:00)
[2019-08-10] MEDS: omega-3 acid ethyl esters 1GM capsule PO SCH (08:01)
[2019-08-10] MEDS: clopidogrel 75mg tablet PO SCH (08:02)
[2019-08-10] MEDS: sertraline 50mg tablet PO SCH (08:03)
[2019-08-10] MEDS: levoTHYROXINE 100mcg tablet PO SCH (08:03)
[2019-08-10] MEDS: gabapentin 300mg capsule PO SCH (08:04)
[2019-08-10] MEDS: metFORMIN 500mg tablet PO SCH (08:04)
--- NOTE | 2019-08-10 08:15 | NUR ---
Pt HR this am 54 for am vitals and 52 when RN rechecked apically and radial. Lopressor held per dose instruction under 60.
[2019-08-10] MEDS: nicotine 21mg patch - 24 hr TD SCH (09:00)
[2019-08-10] MEDS: LORazepam 1 MG tablet PO PRN (09:10)
--- NOTE | 2019-08-10 09:12 | NUR ---
Pt states he feels anxious that he won't be able to go home and that his sister won't come. He asks for Ativan. Ativan given
[2019-08-10 09:55] LABS: ALBUMIN 2.8 G/DL (3.4-5.0); ANION GAP 8 (8-16); BLOOD UREA NITROGEN 40 MG/DL (7-18); BUN/CREATININE RATIO 19.2 (5.4-32.0); CALCIUM 8.5 MG/DL (8.5-10.1); CHLORIDE 106 MMOL/L (99-107); CREATININE 2.08 MG/DL (0.60-1.10); GLUCOSE 187 MG/DL (70-104); SODIUM 137 MMOL/L (135-145); TOTAL CARBON DIOXIDE 23.3 MMOL/L (24-32); eGFR 33 ML/MIN
--- NOTE | 2019-08-10 10:28 | NUR ---
Pt sister to [facility] with clean clothes given to tech. Pt changed into new clothes after inventory done. DC instructions reviewed with pt and pt sister with verbal and sign understanding. Pt discharge to home via car with sister driving pt home. Pt to schedule own follow up appointments. Valuables reviewed per tech and returned to pt. Pt offered nicotine replacement. No acute distress. Pt denies SI/HI/AH/VH. Pt mood improving since admission. Pt sister states her is in the car and she and her will be retrieving all pt guns and ammo and taking them into their own possession. Pt ambulates with own cane out with sister and tech at side, steady gait at 1028.
== END 2019-08-10 10:30 | disposition home or self-care (01) | DRG 885 ==
LOC: ADULT MH 21:14
PROVIDERS: ADMIT Psychiatry & Neurology Psychiatry; ATTEND Psychiatry & Neurology Psychiatry
DX: F33.2 Major depressive disorder, recurrent severe without psychotic features (principal); N18.9 Chronic kidney disease, unspecified; G81.94 Hemiplegia, unspecified affecting left nondominant side; R45.851 Suicidal ideations; E03.9 Hypothyroidism, unspecified; E11.22 Type 2 diabetes mellitus with diabetic chronic kidney disease; E78.1 Pure hyperglyceridemia; E78.5 Hyperlipidemia, unspecified; F12.90 Cannabis use, unspecified, uncomplicated; F48.2 Pseudobulbar affect; F10.10 Alcohol abuse, uncomplicated; G47.00 Insomnia, unspecified; E11.40 Type 2 diabetes mellitus with diabetic neuropathy, unspecified; Z96.642 Presence of left artificial hip joint; F17.210 Nicotine dependence, cigarettes, uncomplicated; I25.10 Atherosclerotic heart disease of native coronary artery without angina pectoris; J44.9 Chronic obstructive pulmonary disease, unspecified; Z79.02 Long term (current) use of antithrombotics/antiplatelets; Z79.84 Long term (current) use of oral hypoglycemic drugs; Z79.899 Other long term (current) drug therapy; Z80.1 Family history of malignant neoplasm of trachea, bronchus and lung; Z95.1 Presence of aortocoronary bypass graft
CPT/HCPCS: 36415; 73502; 80048; 80061; 82948; 83036; 87081; Z7610

== ENCOUNTER 2019-10-29 07:05 | Inpatient (IN) | payer BC ==
[~2019-10-29] VITALS: Ht 172.7 cm; Wt 74.0 kg
[~2019-10-29 07:05] MED LIST changes: +LAMO25TA5 PO; +LEVO100T9 PO; -LEVO75TA PO; +NICO-687 TD; -QUET25TA PO; +QUET25TA34 PO; +SERT50TA10 PO
[2019-10-29] MEDS ORDERED: heparin 25,000 UNIT/250ml bag 250 ML IV SCH (07:11)
[2019-10-29] MEDS ORDERED: heparin 10,000 units/1 ML INJ IV PRN (07:15)
[2019-10-29] MEDS: heparin 25,000 UNIT/250ml bag 250 ML IV SCH ×2 (07:20→15:45)
[2019-10-29] MEDS ORDERED: acetaminophen 325mg tablet PO PRN (07:45)
[2019-10-29] MEDS ORDERED: ondansetron/PF 4mg/2ml inj IV PRN (07:45)
[2019-10-29] MEDS ORDERED: mag hydrox/Alum hydrox/simeth 30ml oral suspension PO PRN (07:45)
[2019-10-29] MEDS ORDERED: morphine 2 MG/ML inj. syringe IV PRN (07:45)
[2019-10-29] MEDS ORDERED: ASPI-1264 PO (08:00)
[2019-10-29] MEDS ORDERED: CITA20TA28 PO (08:00)
[2019-10-29] MEDS ORDERED: RAME8TAB15 PO (08:00)
[2019-10-29] MEDS ORDERED: GLIP10TA11 PO (08:00)
[2019-10-29] MEDS ORDERED: LISI-600 PO (08:00)
[2019-10-29] MEDS ORDERED: TRAZ-251 PO (08:00)
[2019-10-29] MEDS ORDERED: ALB0.5UD IH (08:00)
[2019-10-29] MEDS ORDERED: SIMV-42 PO (08:00)
[2019-10-29 08:41] LABS: ALBUMIN 2.5 G/DL (3.4-5.0); ANION GAP 13 (8-16); BLOOD UREA NITROGEN 39 MG/DL (7-18); BUN/CREATININE RATIO 20.1 (5.4-32.0); CALCIUM 8.3 MG/DL (8.5-10.1); CHLORIDE 101 MMOL/L (99-107); CREATININE 1.94 MG/DL (0.60-1.10); GLUCOSE 133 MG/DL (70-104); MAGNESIUM 2.1 MG/DL (1.5-2.4); POTASSIUM 3.8 MMOL/L (3.5-5.1); SODIUM 135 MMOL/L (135-145); TOTAL CARBON DIOXIDE 21.1 MMOL/L (24-32); eGFR 35 ML/MIN
[2019-10-29] MEDS: normal saline 1000ml 1,000 ML IV SCH ×3 (08:45→22:41)
--- NOTE | 2019-10-29 09:39 | NUR ---
Patient in room ED 4. I have received report from Cherrie SALAZAR and had the opportunity to ask questions and assume patient care. Awaiting patient's arrival to the unit.
[2019-10-29] MEDS ORDERED: GABA-532 PO (10:13)
[2019-10-29] MEDS ORDERED: albuterol 2.5 MG/3 ML nebule NEB PRN (10:20)
--- NOTE | 2019-10-29 10:23 | NUR ---
Patient arrived to the unit accompanied by ED personnel. Patient ambulated from [facility] to hospital bed with left sided weakness noted, telemetry monitoring initiated, patient belongings placed at the bedside, vital signs obtained and 2 RN skin check completed.
[2019-10-29] MEDS ORDERED: zolpidem 5mg tablet PO PRN (10:25)
[2019-10-29 10:33] VITALS: BP 135/58
[2019-10-29] MEDS ORDERED: LAMO25TA5 PO (10:39)
[2019-10-29] MEDS ORDERED: ATOR20TA66 PO (10:39)
--- NOTE | 2019-10-29 10:46 | NUR ---
Page sent to Dr. Nicolas: PAGER ID: [phone] MESSAGE: [id number] Sixto Cruz: Troponin series was cancelled in ED, do you want it ordered? One trop was drawn at [facility]: 2.81. Thanks, Mei [phone]
--- NOTE | 2019-10-29 14:46 | NUR ---
Paged Dr. Nicolas: PAGER ID: [phone] MESSAGE: RE: Sixto Cruz [id number]. FYI Troponin 1.25. Thanks, Shantell [phone]
[2019-10-29 15:00] VITALS: BP 145/79
--- NOTE | 2019-10-29 16:03 | NUR ---
Page sent to Dr. Nicolas: PAGER ID: [phone] MESSAGE: [id number] Sixto Cruz: Pt is having cath tomorrow. No diet ordered, can I order a carb control diet? Also, pt has hx of DM, A1c is 6.8. Can I order DM protocol? Thanks, Mei [phone]
[2019-10-29] MEDS ORDERED: thiamine inj. 100 MG, magnesium sulf injection 2 GM, MVI, adult No.4 with vit. K 10 ML ... IV SCH ×4 (17:25)
[2019-10-29] MEDS ORDERED: LORazepam 2 mg/ml vial IV PRN (17:25)
[2019-10-29] MEDS ORDERED: thiamine inj. 100 MG, MVI, adult No.4 with vit. K 10 ML in dextrose 5% water 500ml 489 ML IV SCH ×3 (17:34)
[2019-10-29 18:00] VITALS: BP 154/79
[2019-10-29] MEDS ORDERED: MVI, adult No.4 with vit. K 10 ML in dextrose 5% water 500ml 490 ML IV SCH ×2 (18:30)
[2019-10-29] MEDS ORDERED: thiamine inj. 100 MG in normal saline 100ml IV soln 100 ML IV SCH (18:30)
--- NOTE | 2019-10-29 18:34 | NUR ---
Problems reprioritized. Patient report given, questions answered & plan of care reviewed with Kirsten SALAZAR.
[2019-10-29] MEDS: HYDROcodone/acetaminophen 5mg/325mg tablet PO PRN (19:14)
[2019-10-29] MEDS: traZODone 50mg tablet PO SCH (20:05)
[2019-10-29] MEDS: metoprolol tartrate 50mg tablet PO SCH (20:07)
[2019-10-29 20:49] LABS: URINE AMPHETAMINE SCREEN NEGATIVE (Neg); URINE BARBITUATE SCREEN NEGATIVE (Neg); URINE BENZODIAZEPINES SCREEN NEGATIVE (Neg); URINE CANNABINOID SCREEN NEGATIVE (Neg); URINE COCAINE SCREEN NEGATIVE (Neg); URINE METHADONE SCREEN NEGATIVE (Neg); URINE OPIATE SCREEN POSITIVE (Neg); URINE PHENCYCLIDINE SCREEN NEGATIVE (Neg)
[2019-10-29 22:00] VITALS: BP 144/85
[2019-10-29] MEDS ORDERED: quetiapine 100mg tablet PO ONE (22:25)
[2019-10-29] MEDS: nicotine 21mg patch - 24 hr TD SCH (22:33)
--- NOTE | 2019-10-29 23:01 | NUR ---
ptt therapeutic, no change in rate. heparin to be dc in am per Dr. Crowley
[2019-10-30 02:00] VITALS: BP 131/96
[2019-10-30 04:56] LABS: BASOPHILS # (AUTO) 0.1 X10'3 (0-0.2); BASOPHILS % (AUTO) 1.2 % (0-1); EOSINOPHILS # (AUTO) 0.1 X10'3 (0-0.9); EOSINOPHILS % (AUTO) 1.7 % (0-6); HEMATOCRIT 39.5 % (42.0-52.0); HEMOGLOBIN 13.4 g/dl (14.0-17.9); LYMPHOCYTES # (AUTO) 1.4 X10'3 (1.1-4.8); LYMPHOCYTES % (AUTO) 17.9 % (21-51); MEAN CORPUSCULAR HEMOGLOBIN 30.3 PG (27.0-31.0); MEAN PLATELET VOLUME 9.3 FL (7.4-10.4); MONOCYTES # (AUTO) 0.8 X10'3 (0-0.9); MONOCYTES % (AUTO) 10.2 % (2-12); NEUTROPHILS # (AUTO) 5.3 X10'3 (1.8-7.7); PLATELET COUNT 138 X10'3 (140-440); RED BLOOD COUNT 4.44 X10'6 (4.70-6.10); RED CELL DISTRIBUTION WIDTH 18.1 % (11.5-14.5); WHITE BLOOD COUNT 7.7 X10'3 (4.5-11.0)
[2019-10-30 05:12] LABS: ALBUMIN 2.2 G/DL (3.4-5.0); ANION GAP 7 (8-16); BLOOD UREA NITROGEN 38 MG/DL (7-18); BUN/CREATININE RATIO 20.4 (5.4-32.0); CALCIUM 7.8 MG/DL (8.5-10.1); CHLORIDE 106 MMOL/L (99-107); CREATININE 1.86 MG/DL (0.60-1.10); GLUCOSE 167 MG/DL (70-104); POTASSIUM 3.6 MMOL/L (3.5-5.1); SODIUM 139 MMOL/L (135-145); TOTAL CARBON DIOXIDE 25.6 MMOL/L (24-32); eGFR 37 ML/MIN
[2019-10-30 06:00] VITALS: BP 126/76
--- NOTE | 2019-10-30 06:09 | NUR ---
Problems reprioritized. Patient report given, questions answered & plan of care reviewed with Rhonda SALAZAR.
--- NOTE | 2019-10-30 06:20 | NUR ---
Patient in room U 3018. I have received report from MARIE Curtis and had the opportunity to ask questions and assume patient care. Patient is currently sleeping in bed, bed locked and low, call light in reach, no acute distress, sitter in room, will continue to monitor.
--- NOTE | 2019-10-30 07:32 | NUR ---
PAGER ID: [phone] MESSAGE: Leora Ellis, ext [phone], [phone], [place], HgbA1C was 7.0, do you want diabetic protocol ordered? AM lab glucose>160
[2019-10-30] MEDS ORDERED: thiamine 100mg tablet PO SCH (08:00)
[2019-10-30] MEDS ORDERED: nicotine 21mg patch - 24 hr TD SCH (08:00)
[2019-10-30] MEDS ORDERED: multivitamins, therapeutics tablet PO SCH (08:00)
[2019-10-30] MEDS ORDERED: magnesium 2GM in 50ml NS 50 ML IV SCH (08:00)
[2019-10-30] MEDS: clopidogrel 75mg tablet PO SCH (08:13)
[2019-10-30] MEDS: aspirin 325mg tablet PO SCH (08:13)
[2019-10-30] MEDS: atorvastatin 20mg tablet PO SCH (08:13)
[2019-10-30] MEDS: nicotine 21mg patch - 24 hr TD SCH (08:13)
[2019-10-30] MEDS: multivitamins, therapeutics tablet PO SCH (08:13)
[2019-10-30] MEDS: thiamine 100mg tablet PO SCH (08:14)
[2019-10-30] MEDS: CITALOpram 10mg tablet PO SCH (08:14)
[2019-10-30] MEDS: folic acid 1mg tablet PO SCH (08:14)
[2019-10-30] MEDS: levoTHYROXINE 100mcg tablet PO SCH (08:14)
[2019-10-30] MEDS: lisinopril 20mg tablet PO SCH (08:18)
[2019-10-30] MEDS: metoprolol tartrate 50mg tablet PO SCH ×2 (08:18→21:16)
[2019-10-30] MEDS ORDERED: dextrose 50%-water 50ml dispensing syringe IV PRN ×2 (09:15)
[2019-10-30] MEDS ORDERED: glucagon, human recombinant 1mg kit SUBCUT PRN (09:15)
[2019-10-30] MEDS ORDERED: dextrose ORAL solution 15 GM/59 ML bottle PO PRN ×2 (09:15)
[2019-10-30] MEDS ORDERED: MESSAGE TO PHARMACY PO ONE (09:15)
[2019-10-30] MEDS: normal saline 1000ml 1,000 ML IV SCH ×2 (10:35→21:16)
[2019-10-30] MEDS: HYDROcodone/acetaminophen 5mg/325mg tablet PO PRN ×2 (10:42→15:09)
[2019-10-30 11:00] VITALS: BP 124/80
[2019-10-30] MEDS: insulin Lispro (HumaLOG) vial - multi-dose SQ SCH ×2 (14:01→19:13)
[2019-10-30 15:00] VITALS: BP 109/70
[2019-10-30] MEDS: CefTRIAXone 2gm/D5W 50ml 50 ML IV SCH (16:19)
--- NOTE | 2019-10-30 16:53 | NUR ---
DM Consult: A1C 7.0. Pt seen by RD for written/verbal DM ed w/ RD contact information provided. Pt passive during RD ed, declines verbal review. Requests double proteins TIDWM; dietary notified. Addendum: 10/30/19 at [address] Amended: Links added.
[2019-10-30] MEDS: magnesium hydroxide 30ml (MOM) UD suspension PO PRN (17:05)
[2019-10-30 18:00] VITALS: BP 125/80
--- NOTE | 2019-10-30 18:21 | NUR ---
Problems reprioritized. Patient report given, questions answered & plan of care reviewed with MARIE Castro.
[2019-10-30] MEDS: morphine 2 MG/ML inj. syringe IV PRN (20:55)
[2019-10-30] MEDS: QUEtiapine 25mg tablet PO SCH (21:16)
[2019-10-30] MEDS: traZODone 50mg tablet PO SCH (21:16)
[2019-10-30] MEDS: insulin glargine (Lantus) pen - multi-dose SQ SCH (21:32)
[2019-10-30 22:00] VITALS: BP 107/71
[2019-10-31 01:54] VITALS: BP 102/63
[2019-10-31] MEDS: normal saline 1000ml 1,000 ML IV SCH ×2 (05:32→16:15)
[2019-10-31 06:00] VITALS: BP 127/75
--- NOTE | 2019-10-31 06:03 | NUR ---
Problems reprioritized. Patient report given, questions answered & plan of care reviewed with Rhonda Story
--- NOTE | 2019-10-31 06:10 | NUR ---
Patient in room U 3018. I have received report from MARIE Castro and had the opportunity to ask questions and assume patient care. Patient currently sleeping in bed, bed locked and low, call light in reach, sitter in room, no acute distress, will continue to monitor.
[2019-10-31 06:27] LABS: BASOPHILS # (AUTO) 0.1 X10'3 (0-0.2); BASOPHILS % (AUTO) 0.8 % (0-1); EOSINOPHILS # (AUTO) 0.2 X10'3 (0-0.9); EOSINOPHILS % (AUTO) 1.7 % (0-6); HEMATOCRIT 39.8 % (42.0-52.0); HEMOGLOBIN 13.4 g/dl (14.0-17.9); LYMPHOCYTES # (AUTO) 1.7 X10'3 (1.1-4.8); LYMPHOCYTES % (AUTO) 18.6 % (21-51); MEAN CORPUSCULAR HGB CONC 33.6 g/dL (33.0-36.5); MEAN CORPUSCULAR VOLUME 89.3 FL (78-98); MEAN PLATELET VOLUME 9.5 FL (7.4-10.4); MONOCYTES # (AUTO) 0.8 X10'3 (0-0.9); MONOCYTES % (AUTO) 8.6 % (2-12); NEUTROPHILS # (AUTO) 6.4 X10'3 (1.8-7.7); NEUTROPHILS % (AUTO) 70.3 % (42-75); PLATELET COUNT 140 X10'3 (140-440); RED BLOOD COUNT 4.45 X10'6 (4.70-6.10); RED CELL DISTRIBUTION WIDTH 18.6 % (11.5-14.5); WHITE BLOOD COUNT 9.1 X10'3 (4.5-11.0)
[2019-10-31 06:39] LABS: ALBUMIN 2.3 G/DL (3.4-5.0); ANION GAP 13 (8-16); BLOOD UREA NITROGEN 40 MG/DL (7-18); BUN/CREATININE RATIO 25.8 (5.4-32.0); CHLORIDE 108 MMOL/L (99-107); CREATININE 1.55 MG/DL (0.60-1.10); GLUCOSE 124 MG/DL (70-104); POTASSIUM 4.3 MMOL/L (3.5-5.1); SODIUM 141 MMOL/L (135-145); TOTAL CARBON DIOXIDE 20.5 MMOL/L (24-32); eGFR 46 ML/MIN
[2019-10-31] MEDS: CefTRIAXone 2gm/D5W 50ml 50 ML IV SCH (08:17)
[2019-10-31] MEDS: multivitamins, therapeutics tablet PO SCH (08:18)
[2019-10-31] MEDS: CITALOpram 10mg tablet PO SCH (08:18)
[2019-10-31] MEDS: thiamine 100mg tablet PO SCH (08:18)
[2019-10-31] MEDS: lisinopril 20mg tablet PO SCH (08:19)
[2019-10-31] MEDS: levoTHYROXINE 100mcg tablet PO SCH (08:19)
[2019-10-31] MEDS: atorvastatin 20mg tablet PO SCH (08:19)
[2019-10-31] MEDS: aspirin 325mg tablet PO SCH (08:19)
[2019-10-31] MEDS: clopidogrel 75mg tablet PO SCH (08:19)
[2019-10-31] MEDS: metoprolol tartrate 50mg tablet PO SCH ×2 (08:19→20:11)
[2019-10-31] MEDS: HYDROcodone/acetaminophen 5mg/325mg tablet PO PRN ×2 (08:20→12:31)
[2019-10-31] MEDS: nicotine 21mg patch - 24 hr TD SCH (08:21)
[2019-10-31] MEDS: folic acid 1mg tablet PO SCH (08:22)
[2019-10-31] MEDS: insulin Lispro (HumaLOG) vial - multi-dose SQ SCH ×2 (08:30→14:13)
[2019-10-31 08:32] LABS: TOTAL CELLS COUNTED 100
[2019-10-31 08:33] LABS: PLATELET ESTIMATE NORMAL
[2019-10-31 08:34] LABS: ANISOCYTOSIS 2+; LARGE PLATELETS FEW
[2019-10-31 11:00] VITALS: BP 108/66
--- NOTE | 2019-10-31 11:56 | NUR ---
Problems reprioritized. Patient report given, questions answered & plan of care reviewed with MARIE Isbell.
[2019-10-31 15:00] VITALS: BP 119/61
--- NOTE | 2019-10-31 16:00 | NUR ---
c/o dull throbbing pain in middle of chest. SR on tele monitor with HR @ 62. No history of GERD.
[2019-10-31] MEDS: nitroGLYCERIN 0.4mg SUBLingual tab SL PRN ×3 (16:05→16:30)
--- NOTE | 2019-10-31 16:11 | NUR ---
Given nitro 0.4 sublingual x2. States that chest pain is gone.
--- NOTE | 2019-10-31 16:29 | NUR ---
PAGER ID: [phone] MESSAGE: [id number] Gladis Cruz 1600 c/o severe dull throbbing chest pain in sternum. NSR on tele monitor HR @ 62. Gave nitro SL x2. Stated pain went away. Now c/o chest pain again. Giving 3rd nitor SL. Augika [id number]
--- NOTE | 2019-10-31 17:16 | NUR ---
Received call from Isha GUTIERREZ. States that she consulted with Ric GUTIERREZ who advised her to call Keo GUTIERREZ, the steam box tender that had seen the patient originally. She left him a voicemail and we are waiting for a response. In the mean time, I have received verbal orders to administer ordered morphine PRN if patient c/o chest pain again.
--- NOTE | 2019-10-31 17:39 | NUR ---
PAGER ID: [phone] MESSAGE: [id number] Gladis Cruz Troponin positive at 0.46, [place] [phone]
[2019-10-31 18:00] VITALS: BP 112/69
--- NOTE | 2019-10-31 18:30 | NUR ---
Patient in room PCU 3018. I have received report from Akilah SALAZAR and had the opportunity to ask questions and assume patient care.
--- NOTE | 2019-10-31 18:31 | NUR ---
Problems reprioritized. Patient report given, questions answered & plan of care reviewed with Tk RN.
[2019-10-31] MEDS: morphine 2 MG/ML inj. syringe IV PRN (19:35)
[2019-10-31] MEDS: QUEtiapine 25mg tablet PO SCH (20:09)
[2019-10-31] MEDS: traZODone 50mg tablet PO SCH (20:09)
[2019-10-31] MEDS: insulin glargine (Lantus) pen - multi-dose SQ SCH (21:29)
[2019-10-31 22:00] VITALS: BP 128/72
[2019-11-01] MEDS: HYDROcodone/acetaminophen 5mg/325mg tablet PO PRN ×2 (00:47→05:10)
[2019-11-01 02:00] VITALS: BP 125/70
[2019-11-01] MEDS: normal saline 1000ml 1,000 ML IV SCH ×2 (02:10→20:20)
[2019-11-01 06:00] VITALS: BP 134/79
--- NOTE | 2019-11-01 06:10 | NUR ---
Problems reprioritized. Patient report given, questions answered & plan of care reviewed with Akilah SALAZAR.
[2019-11-01 06:20] LABS: ALBUMIN 2.2 G/DL (3.4-5.0); ANION GAP 9 (8-16); BLOOD UREA NITROGEN 38 MG/DL (7-18); BUN/CREATININE RATIO 23.6 (5.4-32.0); CHLORIDE 110 MMOL/L (99-107); CREATININE 1.61 MG/DL (0.60-1.10); GLUCOSE 110 MG/DL (70-104); POTASSIUM 4.2 MMOL/L (3.5-5.1); SODIUM 140 MMOL/L (135-145); eGFR 44 ML/MIN
[2019-11-01 06:21] LABS: BASOPHILS # (AUTO) 0.1 X10'3 (0-0.2); BASOPHILS % (AUTO) 0.7 % (0-1); EOSINOPHILS # (AUTO) 0.2 X10'3 (0-0.9); EOSINOPHILS % (AUTO) 2.8 % (0-6); HEMATOCRIT 40.2 % (42.0-52.0); HEMOGLOBIN 13.4 g/dl (14.0-17.9); LYMPHOCYTES # (AUTO) 1.3 X10'3 (1.1-4.8); MEAN CORPUSCULAR HEMOGLOBIN 30.1 PG (27.0-31.0); MEAN CORPUSCULAR HGB CONC 33.3 g/dL (33.0-36.5); MEAN CORPUSCULAR VOLUME 90.4 FL (78-98); MEAN PLATELET VOLUME 9.5 FL (7.4-10.4); MONOCYTES # (AUTO) 0.6 X10'3 (0-0.9); NEUTROPHILS # (AUTO) 5.7 X10'3 (1.8-7.7); NEUTROPHILS % (AUTO) 71.5 % (42-75); PLATELET COUNT 122 X10'3 (140-440); RED BLOOD COUNT 4.45 X10'6 (4.70-6.10); RED CELL DISTRIBUTION WIDTH 18.6 % (11.5-14.5); WHITE BLOOD COUNT 7.9 X10'3 (4.5-11.0)
--- NOTE | 2019-11-01 06:30 | NUR ---
Patient in room PCU 3018. I have received report from Tk RN and had the opportunity to ask questions and assume patient care.
[2019-11-01] MEDS: nicotine 21mg patch - 24 hr TD SCH (08:00)
[2019-11-01] MEDS: CefTRIAXone 2gm/D5W 50ml 50 ML IV SCH (08:00)
[2019-11-01] MEDS: clopidogrel 75mg tablet PO SCH (09:42)
[2019-11-01] MEDS: folic acid 1mg tablet PO SCH (09:42)
[2019-11-01] MEDS: LORazepam 2 mg/ml vial IV PRN ×2 (09:42→20:19)
[2019-11-01] MEDS: thiamine 100mg tablet PO SCH (09:42)
[2019-11-01] MEDS: aspirin 325mg tablet PO SCH (09:43)
[2019-11-01] MEDS: metoprolol tartrate 50mg tablet PO SCH ×2 (09:43→20:19)
[2019-11-01] MEDS: CITALOpram 10mg tablet PO SCH (09:43)
[2019-11-01] MEDS: multivitamins, therapeutics tablet PO SCH (09:44)
[2019-11-01] MEDS: lisinopril 20mg tablet PO SCH (09:44)
[2019-11-01] MEDS: levoTHYROXINE 100mcg tablet PO SCH (09:44)
[2019-11-01] MEDS: atorvastatin 20mg tablet PO SCH (09:44)
[2019-11-01] MEDS: insulin Lispro (HumaLOG) vial - multi-dose SQ SCH ×3 (10:46→19:38)
[2019-11-01] MEDS ORDERED: methylnaltrexone br 12mg/0.6ml inj***SubQ only SQ ONE (10:50)
[2019-11-01 11:00] VITALS: BP 142/91
[2019-11-01 15:00] VITALS: BP 162/83
--- NOTE | 2019-11-01 18:30 | NUR ---
Patient in room PCU 3018. I have received report from MARIE Isbell and had the opportunity to ask questions and assume patient care.
--- NOTE | 2019-11-01 18:31 | NUR ---
Problems reprioritized. Patient report given, questions answered & plan of care reviewed with Marci SALAZAR.
[2019-11-01 19:00] VITALS: BP 161/99
[2019-11-01] MEDS: QUEtiapine 25mg tablet PO SCH (20:19)
[2019-11-01] MEDS: traZODone 50mg tablet PO SCH (20:19)
[2019-11-01] MEDS: lactobacillus rhamnosus 10,000 MMU CELLS/CAPSULE PO SCH (20:19)
[2019-11-01] MEDS: insulin glargine (Lantus) pen - multi-dose SQ SCH (22:09)
[2019-11-01 23:00] VITALS: BP 132/65
[2019-11-02] MEDS: LORazepam 2 mg/ml vial IV PRN ×2 (02:22→04:30)
[2019-11-02 03:00] VITALS: BP 145/51
[2019-11-02 06:00] VITALS: BP 132/87
[2019-11-02 06:22] LABS: BASOPHILS # (AUTO) 0.1 X10'3 (0-0.2); BASOPHILS % (AUTO) 0.9 % (0-1); EOSINOPHILS # (AUTO) 0.2 X10'3 (0-0.9); EOSINOPHILS % (AUTO) 2.8 % (0-6); HEMATOCRIT 38.2 % (42.0-52.0); HEMOGLOBIN 12.7 g/dl (14.0-17.9); LYMPHOCYTES # (AUTO) 1.4 X10'3 (1.1-4.8); LYMPHOCYTES % (AUTO) 16.9 % (21-51); MEAN CORPUSCULAR HEMOGLOBIN 30.2 PG (27.0-31.0); MEAN CORPUSCULAR HGB CONC 33.3 g/dL (33.0-36.5); MEAN CORPUSCULAR VOLUME 90.8 FL (78-98); MEAN PLATELET VOLUME 9.4 FL (7.4-10.4); MONOCYTES # (AUTO) 0.7 X10'3 (0-0.9); MONOCYTES % (AUTO) 8.3 % (2-12); NEUTROPHILS # (AUTO) 5.8 X10'3 (1.8-7.7); NEUTROPHILS % (AUTO) 71.1 % (42-75); PLATELET COUNT 129 X10'3 (140-440); RED BLOOD COUNT 4.21 X10'6 (4.70-6.10); RED CELL DISTRIBUTION WIDTH 18.1 % (11.5-14.5); WHITE BLOOD COUNT 8.1 X10'3 (4.5-11.0)
--- NOTE | 2019-11-02 06:29 | NUR ---
Problems reprioritized. Patient report given, questions answered & plan of care reviewed with MARIE Isbell.
--- NOTE | 2019-11-02 06:30 | NUR ---
Patient in room PCU 3018. I have received report from Marci SALAZAR and had the opportunity to ask questions and assume patient care.
[2019-11-02 06:32] LABS: ALBUMIN 2.1 G/DL (3.4-5.0); ANION GAP 8 (8-16); BLOOD UREA NITROGEN 39 MG/DL (7-18); BUN/CREATININE RATIO 22.8 (5.4-32.0); CALCIUM 8.3 MG/DL (8.5-10.1); CHLORIDE 110 MMOL/L (99-107); CREATININE 1.71 MG/DL (0.60-1.10); GLUCOSE 99 MG/DL (70-104); POTASSIUM 4.5 MMOL/L (3.5-5.1); SODIUM 140 MMOL/L (135-145); TOTAL CARBON DIOXIDE 22.5 MMOL/L (24-32); eGFR 41 ML/MIN
[2019-11-02] MEDS: lisinopril 20mg tablet PO SCH (08:00)
[2019-11-02] MEDS: multivitamins, therapeutics tablet PO SCH (08:00)
[2019-11-02] MEDS: nicotine 21mg patch - 24 hr TD SCH (08:00)
[2019-11-02] MEDS: CITALOpram 10mg tablet PO SCH (08:00)
[2019-11-02] MEDS: thiamine 100mg tablet PO SCH (08:00)
[2019-11-02] MEDS: atorvastatin 20mg tablet PO SCH (08:00)
[2019-11-02] MEDS: aspirin 81mg tablet.DR PO SCH (08:00)
[2019-11-02] MEDS: levoTHYROXINE 100mcg tablet PO SCH (08:00)
[2019-11-02] MEDS: clopidogrel 75mg tablet PO SCH (08:00)
[2019-11-02] MEDS: folic acid 1mg tablet PO SCH (08:00)
[2019-11-02] MEDS: metoprolol tartrate 50mg tablet PO SCH ×2 (08:00→19:46)
[2019-11-02] MEDS: lactobacillus rhamnosus 10,000 MMU CELLS/CAPSULE PO SCH ×2 (08:00→19:46)
[2019-11-02] MEDS: normal saline 1000ml 1,000 ML IV SCH ×2 (08:03→22:21)
[2019-11-02 11:00] VITALS: BP 151/83
[2019-11-02] MEDS: insulin Lispro (HumaLOG) vial - multi-dose SQ SCH ×2 (14:21→19:44)
[2019-11-02 15:00] VITALS: BP 119/78
--- NOTE | 2019-11-02 18:00 | NUR ---
Patient in room PCU 3018. I have received report from Akilah SALAZAR and had the opportunity to ask questions and assume patient care.
--- NOTE | 2019-11-02 18:25 | NUR ---
Problems reprioritized. Patient report given, questions answered & plan of care reviewed with Hailey SALAZAR.
[2019-11-02] MEDS: QUEtiapine 25mg tablet PO SCH (19:45)
[2019-11-02] MEDS: traZODone 50mg tablet PO SCH (19:45)
[2019-11-02 22:00] VITALS: BP 138/80
[2019-11-02] MEDS: insulin glargine (Lantus) pen - multi-dose SQ SCH (22:17)
[2019-11-03 02:00] VITALS: BP 115/65
[2019-11-03] MEDS: LORazepam 2 mg/ml vial IV PRN ×3 (04:59→17:14)
[2019-11-03] MEDS: morphine 2 MG/ML inj. syringe IV PRN (05:00)
--- NOTE | 2019-11-03 05:58 | NUR ---
Student documentation: I have reviewed and agree with all interventions, assessments performed and documented by ANNA student RN. Student Medication Administration: For this medication-pass time frame, all medication were reviewed, dispensed, administered and documented per hospital policy by ANNA schafer RN.
[2019-11-03 06:00] VITALS: BP 137/77
[2019-11-03 06:07] LABS: BASOPHILS # (AUTO) 0.1 X10'3 (0-0.2); BASOPHILS % (AUTO) 1.3 % (0-1); EOSINOPHILS # (AUTO) 0.3 X10'3 (0-0.9); EOSINOPHILS % (AUTO) 3.3 % (0-6); HEMATOCRIT 40.7 % (42.0-52.0); HEMOGLOBIN 13.7 g/dl (14.0-17.9); LYMPHOCYTES # (AUTO) 1.3 X10'3 (1.1-4.8); LYMPHOCYTES % (AUTO) 16.5 % (21-51); MEAN CORPUSCULAR HEMOGLOBIN 30.3 PG (27.0-31.0); MEAN CORPUSCULAR HGB CONC 33.7 g/dL (33.0-36.5); MEAN PLATELET VOLUME 9.6 FL (7.4-10.4); MONOCYTES # (AUTO) 0.8 X10'3 (0-0.9); MONOCYTES % (AUTO) 10.2 % (2-12); NEUTROPHILS # (AUTO) 5.4 X10'3 (1.8-7.7); NEUTROPHILS % (AUTO) 68.7 % (42-75); PLATELET COUNT 149 X10'3 (140-440); RED BLOOD COUNT 4.52 X10'6 (4.70-6.10); WHITE BLOOD COUNT 7.9 X10'3 (4.5-11.0)
[2019-11-03 06:30] LABS: ALBUMIN 2.3 G/DL (3.4-5.0); ANION GAP 10 (8-16); BLOOD UREA NITROGEN 34 MG/DL (7-18); BUN/CREATININE RATIO 23.4 (5.4-32.0); CALCIUM 8.6 MG/DL (8.5-10.1); CHLORIDE 110 MMOL/L (99-107); CREATININE 1.45 MG/DL (0.60-1.10); GLUCOSE 116 MG/DL (70-104); POTASSIUM 4.5 MMOL/L (3.5-5.1); SODIUM 142 MMOL/L (135-145); TOTAL CARBON DIOXIDE 22.4 MMOL/L (24-32); eGFR 49 ML/MIN
--- NOTE | 2019-11-03 06:36 | NUR ---
Problems reprioritized. Patient report given, questions answered & plan of care reviewed with Rhonda SALAZAR.
--- NOTE | 2019-11-03 06:45 | NUR ---
Patient in room PCU 3018. I have received report from MARIE Hart and had the opportunity to ask questions and assume patient care. Patient currently sleeping in bed, visible rise and fall of chest, bed locked and low, call light in reach, no acute distress, will continue to monitor.
[2019-11-03] MEDS: thiamine 100mg tablet PO SCH (08:08)
[2019-11-03] MEDS: multivitamins, therapeutics tablet PO SCH (08:08)
[2019-11-03] MEDS: aspirin 81mg tablet.DR PO SCH (08:08)
[2019-11-03] MEDS: lactobacillus rhamnosus 10,000 MMU CELLS/CAPSULE PO SCH ×2 (08:09→19:27)
[2019-11-03] MEDS: CITALOpram 10mg tablet PO SCH (08:09)
[2019-11-03] MEDS: clopidogrel 75mg tablet PO SCH (08:09)
[2019-11-03] MEDS: lisinopril 20mg tablet PO SCH (08:09)
[2019-11-03] MEDS: folic acid 1mg tablet PO SCH (08:09)
[2019-11-03] MEDS: atorvastatin 20mg tablet PO SCH (08:09)
[2019-11-03] MEDS: levoTHYROXINE 100mcg tablet PO SCH (08:09)
[2019-11-03] MEDS: metoprolol tartrate 50mg tablet PO SCH ×2 (08:11→19:28)
[2019-11-03] MEDS: nicotine 21mg patch - 24 hr TD SCH (08:14)
[2019-11-03] MEDS: insulin Lispro (HumaLOG) vial - multi-dose SQ SCH ×3 (08:27→19:25)
[2019-11-03 11:00] VITALS: BP 146/78
[2019-11-03] MEDS: HYDROcodone/acetaminophen 5mg/325mg tablet PO PRN ×2 (14:01→19:27)
[2019-11-03 15:00] VITALS: BP 120/70
--- NOTE | 2019-11-03 16:35 | NUR ---
Initial: Pt admit w/ NSTEMI, PRICILLA on CKD, recurrent falls, etoh abuse hx, chronic pain syndrome, and cellulitis now resolved per MD. Pt PO 75-100% avg heart healthy/carb controlled diet meeting needs. LBM 11/01. Receiving thiamin, folic, MVI for etoh hx. No nutrition concerns at this time. Will continue to monitor. Rec: 1. continue carb controlled/heart healthy diet 2. bowel care as needed 3. thiamin, folic, MVI w/ etoh hx 4. wt per rx Addendum: 11/03/19 at [address] Amended: Links added.
[2019-11-03 18:00] VITALS: BP 152/72
--- NOTE | 2019-11-03 18:00 | NUR ---
Patient in room PCU 3018. I have received report from Rhonda SALAZAR and had the opportunity to ask questions and assume patient care.
--- NOTE | 2019-11-03 18:18 | NUR ---
Problems reprioritized. Patient report given, questions answered & plan of care reviewed with MARIE Hart.
[2019-11-03] MEDS: QUEtiapine 25mg tablet PO SCH (19:27)
[2019-11-03] MEDS: traZODone 50mg tablet PO SCH (19:27)
[2019-11-03] MEDS: gabapentin 300mg capsule PO PRN (19:27)
[2019-11-03 22:00] VITALS: BP 105/54
[2019-11-03] MEDS: insulin glargine (Lantus) pen - multi-dose SQ SCH (22:31)
[2019-11-04] VITALS (7 sets, daily range): BP systolic 115–164; BP diastolic 50–92
--- NOTE | 2019-11-04 06:30 | NUR ---
Patient in room U 3018. I have received report from Hailey SALAZAR and had the opportunity to ask questions and assume patient care. Patient asleep in room. BCNA present in room. In no acute distress.
--- NOTE | 2019-11-04 06:33 | NUR ---
Problems reprioritized. Patient report given, questions answered & plan of care reviewed with Shantell SALAZAR.
[2019-11-04] MEDS: HYDROcodone/acetaminophen 5mg/325mg tablet PO PRN ×2 (09:02→13:07)
[2019-11-04] MEDS: folic acid 1mg tablet PO SCH (09:02)
[2019-11-04] MEDS: CITALOpram 10mg tablet PO SCH (09:03)
[2019-11-04] MEDS: lactobacillus rhamnosus 10,000 MMU CELLS/CAPSULE PO SCH ×2 (09:03→19:15)
[2019-11-04] MEDS: aspirin 81mg tablet.DR PO SCH (09:03)
[2019-11-04] MEDS: thiamine 100mg tablet PO SCH (09:03)
[2019-11-04] MEDS: multivitamins, therapeutics tablet PO SCH (09:03)
[2019-11-04] MEDS: clopidogrel 75mg tablet PO SCH (09:03)
[2019-11-04] MEDS: atorvastatin 20mg tablet PO SCH (09:03)
[2019-11-04] MEDS: levoTHYROXINE 100mcg tablet PO SCH (09:03)
[2019-11-04] MEDS: insulin Lispro (HumaLOG) vial - multi-dose SQ SCH ×3 (09:05→19:46)
[2019-11-04] MEDS: nicotine 21mg patch - 24 hr TD SCH (09:06)
[2019-11-04] MEDS: metoprolol tartrate 50mg tablet PO SCH ×2 (09:06→19:15)
[2019-11-04] MEDS: lisinopril 20mg tablet PO SCH (09:46)
[2019-11-04] MEDS: magnesium hydroxide 30ml (MOM) UD suspension PO PRN (09:46)
[2019-11-04] MEDS: LORazepam 2 mg/ml vial IV PRN ×2 (13:17→19:15)
[2019-11-04] MEDS ORDERED: bisacodyl 5mg tablet.DR PO PRN (16:35)
--- NOTE | 2019-11-04 18:20 | NUR ---
Problems reprioritized. Patient report given, questions answered & plan of care reviewed with Brenna SALAZAR. Patient stable at transfer of care.
--- NOTE | 2019-11-04 18:44 | NUR ---
Patient in room U 3018. I have received report from MARIE Stinson and had the opportunity to ask questions and assume patient care. Addendum: 11/04/19 at 1845 by Brenna Manuel RN Amended: Links added.
[2019-11-04] MEDS: traZODone 50mg tablet PO SCH (19:15)
[2019-11-04] MEDS: QUEtiapine 25mg tablet PO SCH (19:20)
[2019-11-04] MEDS: insulin glargine (Lantus) pen - multi-dose SQ SCH (20:46)
[2019-11-05 02:33] VITALS: BP 173/87
[2019-11-05] MEDS: LORazepam 2 mg/ml vial IV PRN ×2 (05:52→11:46)
[2019-11-05] MEDS: HYDROcodone/acetaminophen 5mg/325mg tablet PO PRN ×2 (05:52→11:46)
[2019-11-05 05:56] VITALS: BP 165/77
--- NOTE | 2019-11-05 06:13 | NUR ---
Problems reprioritized. Patient report given, questions answered & plan of care reviewed with MARIE Stinson. Addendum: 11/05/19 at 0613 by Brenna Manuel RN Amended: Links added.
--- NOTE | 2019-11-05 06:18 | NUR ---
Patient in room PCU 3018. I have received report from Brenna SALAZAR and had the opportunity to ask questions and assume patient care.
[2019-11-05] MEDS: lactobacillus rhamnosus 10,000 MMU CELLS/CAPSULE PO SCH (08:13)
[2019-11-05] MEDS: thiamine 100mg tablet PO SCH (08:13)
[2019-11-05] MEDS: aspirin 81mg tablet.DR PO SCH (08:13)
[2019-11-05] MEDS: multivitamins, therapeutics tablet PO SCH (08:13)
[2019-11-05] MEDS: folic acid 1mg tablet PO SCH (08:14)
[2019-11-05] MEDS: metoprolol tartrate 50mg tablet PO SCH (08:14)
[2019-11-05] MEDS: CITALOpram 10mg tablet PO SCH (08:14)
[2019-11-05] MEDS: gabapentin 300mg capsule PO PRN (08:15)
[2019-11-05] MEDS: levoTHYROXINE 100mcg tablet PO SCH (08:15)
[2019-11-05] MEDS: atorvastatin 20mg tablet PO SCH (08:15)
[2019-11-05] MEDS: lisinopril 20mg tablet PO SCH (08:15)
[2019-11-05] MEDS: nicotine 21mg patch - 24 hr TD SCH (08:15)
[2019-11-05] MEDS: clopidogrel 75mg tablet PO SCH (08:15)
[2019-11-05] MEDS: insulin Lispro (HumaLOG) vial - multi-dose SQ SCH ×2 (09:33→12:59)
[2019-11-05] MEDS ORDERED: amLODIPine 5mg tablet PO SCH (10:05)
[2019-11-05 11:00] VITALS: BP 149/82
[2019-11-05 15:00] VITALS: BP 130/68
--- NOTE | 2019-11-05 16:52 | NUR ---
Patient stable for transfer per MD orders. Patient picked up by Shama for transfer to [facility]. All patient belongings packed up and sent with patient via transportation services. Report called to Paul. All questions answered. PIV discontinued. Telemetry monitoring discontinued.
== END 2019-11-05 16:52 | DRG 280 ==
LOC: ER 07:05 → ED HOLD 07:41 → PCU 3S 09:50
PROVIDERS: ADMIT Family Medicine; ATTEND Internal Medicine
DX: I21.4 Non-ST elevation (NSTEMI) myocardial infarction (principal); N17.0 Acute kidney failure with tubular necrosis; I13.0 Hypertensive heart and chronic kidney disease with heart failure and stage 1 through stage 4 chronic kidney disease, or unspecified chronic kidney disease; L03.116 Cellulitis of left lower limb; Z95.1 Presence of aortocoronary bypass graft; Z86.73 Personal history of transient ischemic attack (TIA), and cerebral infarction without residual deficits; I25.10 Atherosclerotic heart disease of native coronary artery without angina pectoris; I25.2 Old myocardial infarction; E11.22 Type 2 diabetes mellitus with diabetic chronic kidney disease; N18.9 Chronic kidney disease, unspecified; I50.9 Heart failure, unspecified; F32.9 Major depressive disorder, single episode, unspecified; F12.90 Cannabis use, unspecified, uncomplicated; F10.20 Alcohol dependence, uncomplicated; F17.200 Nicotine dependence, unspecified, uncomplicated; E03.9 Hypothyroidism, unspecified; E78.00 Pure hypercholesterolemia, unspecified; E78.5 Hyperlipidemia, unspecified
CPT/HCPCS: 36415; 70450; 80048; 80305; 82948; 83036; 83735; 84484; 85025; 85730; 87081; 93005; 94760; 97110; 97116; 97162; 97530; 99285; G0378; J0696; J1644; J1815; J2060; J2212; J2270; J7030

== ENCOUNTER 2019-12-26 19:38 | Emergency (ER) | payer BC ==
[~2019-12-26] VITALS: Ht 172.7 cm; Wt 95.0 kg
[~2019-12-26 19:38] MED LIST changes: +ALB0.5UD IH; +ASPI-1264 PO; +ATOR20TA66 PO; -ATOR80TA PO; +CITA20TA28 PO; +GABA-532 PO; -GABA600T13 PO; +GLIP10TA11 PO; +LISI-600 PO; -QUET25TA34 PO; +RAME8TAB15 PO; -SERT50TA10 PO; +SIMV-42 PO; +TRAZ-251 PO
[2019-12-26 20:06] LABS: BASOPHILS # (AUTO) 0.1 X10'3 (0-0.2); BASOPHILS % (AUTO) 0.6 % (0-1); EOSINOPHILS # (AUTO) 0.1 X10'3 (0-0.9); EOSINOPHILS % (AUTO) 0.6 % (0-6); HEMATOCRIT 42.6 % (42.0-52.0); HEMOGLOBIN 14.5 g/dl (14.0-17.9); LYMPHOCYTES # (AUTO) 1.5 X10'3 (1.1-4.8); LYMPHOCYTES % (AUTO) 11.7 % (21-51); MEAN CORPUSCULAR HEMOGLOBIN 31.2 PG (27.0-31.0); MEAN CORPUSCULAR HGB CONC 33.9 g/dL (33.0-36.5); MEAN CORPUSCULAR VOLUME 92.1 FL (78-98); MEAN PLATELET VOLUME 7.7 FL (7.4-10.4); MONOCYTES # (AUTO) 0.9 X10'3 (0-0.9); MONOCYTES % (AUTO) 6.9 % (2-12); NEUTROPHILS # (AUTO) 10.1 X10'3 (1.8-7.7); NEUTROPHILS % (AUTO) 80.2 % (42-75); PLATELET COUNT 222 X10'3 (140-440); RED BLOOD COUNT 4.63 X10'6 (4.70-6.10); RED CELL DISTRIBUTION WIDTH 15.4 % (11.5-14.5); WHITE BLOOD COUNT 12.6 X10'3 (4.5-11.0)
[2019-12-26 20:15] LABS: ALANINE AMINOTRANSFERASE 25 U/L (12-78); ALBUMIN 3.6 G/DL (3.4-5.0); ALBUMIN/GLOBULIN RATIO 0.9 (1.1-1.5); ALKALINE PHOSPHATASE 138 IU/L (46-116); ANION GAP 10 (8-16); ASPARTATE AMINO TRANSFERASE 20 U/L (10-37); BILIRUBIN,TOTAL 0.4 MG/DL (0.1-1.0); BLOOD UREA NITROGEN 27 MG/DL (7-18); BUN/CREATININE RATIO 14.2 (5.4-32.0); CALCIUM 8.9 MG/DL (8.5-10.1); CHLORIDE 92 MMOL/L (99-107); GLUCOSE 112 MG/DL (70-104); SODIUM 125 MMOL/L (135-145); TOTAL CARBON DIOXIDE 22.9 MMOL/L (24-32); TOTAL PROTEIN 7.7 G/DL (6.4-8.2); eGFR 36 ML/MIN
[2019-12-26] MEDS ORDERED: nicotine 21mg patch - 24 hr TD ONE (20:15)
[2019-12-26 20:21] LABS: CLARITY,URINE CLEAR (Clear); COLOR,URINE YELLOW (Yellow); GLUCOSE, URINE NEGATIVE (Neg); KETONES,URINE NEGATIVE (Neg); LEUKOCYTE ESTERASE ,URINE NEGATIVE (Neg); NITRITES, URINE NEGATIVE (Neg); OCCULT BLOOD,URINE SMALL (Neg); PROTEIN,URINE >=300 mg/dl (Neg); UROBILINOGEN,URINE 0.2 E.U/dL (0.2-1.0)
--- NOTE | 2019-12-26 20:23 | NUR ---
PATIENT GIVEN MILK, SANDWICH, CHEESE STICK AND YOGURT. PT IS POLITE AND COOPERATIVE WITH STAFF.
[2019-12-26 20:24] LABS: ETHANOL < 0.010 GM/DL (0.0-0.010)
[2019-12-26 20:26] LABS: UA COLLECTION TYPE URINAL
[2019-12-26 20:28] LABS: BACTERIA,URINE NONE SEEN /HPF (Neg); RBC,URINE 0-2 /HPF (0-2); SQUAMOUS EPITHELIAL CELL,UR NONE SEEN /LPF (FEW); WBC,URINE 0-4 /HPF (0-4)
[2019-12-26 20:34] LABS: URINE AMPHETAMINE SCREEN NEGATIVE (Neg); URINE BARBITUATE SCREEN NEGATIVE (Neg); URINE BENZODIAZEPINES SCREEN NEGATIVE (Neg); URINE CANNABINOID SCREEN NEGATIVE (Neg); URINE COCAINE SCREEN NEGATIVE (Neg); URINE METHADONE SCREEN NEGATIVE (Neg); URINE OPIATE SCREEN POSITIVE (Neg); URINE PHENCYCLIDINE SCREEN NEGATIVE (Neg)
[2019-12-26] MEDS ORDERED: normal saline 1000ML IV soln IVB ONE ×2 (20:35→20:45)
[2019-12-26] MEDS ORDERED: LEVO100T PO (21:06)
--- NOTE | 2019-12-26 21:10 | NUR ---
PT GIVEN WARM BLANKETS. HE STATES THE IV FLUIDS ARE MAKING HIM COLD. PT ATE 100% OF MEAL PROVIDED EARLIER
[2019-12-26] MEDS ORDERED: HYDROcodone/acetaminophen 5mg/325mg tablet PO ONE (21:35)
[2019-12-26] MEDS ORDERED: gabapentin 300mg capsule PO PRN (21:55)
[2019-12-26] MEDS ORDERED: nitroGLYCERIN 0.4mg SUBLingual tab SL PRN (21:55)
[2019-12-26] MEDS ORDERED: albuterol 2.5 MG/3 ML nebule NEB PRN (21:55)
--- NOTE | 2019-12-26 22:58 | NUR ---
Patient is well oriented. Placed on bed 25. Patient states hip pain is better following first norco. Pain is 7 out of 10 now in the right hip. Patient states he has not slept for two days and has been off his medications for two weeks. This expert medical writer will address medications with ER MD. Plan: pain relief, help patient sleep, close observation for patient safety.
[2019-12-26] MEDS ORDERED: HYDROcodone/acetaminophen 10/325mg tab PO ONE (23:25)
[2019-12-26] MEDS ORDERED: quetiapine 100mg tablet PO SCH (23:25)
[2019-12-26] MEDS ORDERED: traZODone 50mg tablet PO PRN (23:35)
--- NOTE | 2019-12-27 00:01 | NUR ---
After consulting with Dr. Grier this patient was given a [place] 10 for his hip pain. An order was placed for Seroquel 100 mg QHS as this was on his normal Rx at home. Patients Trazadone order was changed to a PRN.
--- NOTE | 2019-12-27 01:07 | NUR ---
Maria E states he is not tired and still can't sleep. Some pain is still present in the right hip. Patient was given Trazadone 50mg PO and His Gabapentin Q6 hr order was given for his hip pain.
--- NOTE | 2019-12-27 02:29 | NUR ---
Pt sleeping, lying on his back with blankets covering to his chest. RR 14 and unlabored. Sitter and RN within view of Pt AAT.
--- NOTE | 2019-12-27 02:58 | NUR ---
packet faxed to [facility] office
--- NOTE | 2019-12-27 03:35 | NUR ---
Patient is sleeping quietlly in a low fowlers position in bed.
--- NOTE | 2019-12-27 04:45 | NUR ---
Patient remains sleeping in a low fowlers position. Patient looks comfortible. Good color. In view from nursing station.
--- NOTE | 2019-12-27 05:46 | NUR ---
Patient remains sleeping quietly. No distress.
--- NOTE | 2019-12-27 06:00 | NUR ---
Patient sleeping quietly. No distress.
[2019-12-27 06:08] VITALS: BP_DIAS 50
--- NOTE | 2019-12-27 07:00 | NUR ---
Pt awake in bed. Pt c/o right hip pain. Pt was able to ambulate to the bathroom with his walker. Pt had a slow gait with a visible limp. MD notified, no new orders at this time.
[2019-12-27 07:56] VITALS: BP_SYST 103
[2019-12-27] MEDS ORDERED: lisinopril 20mg tablet PO SCH (08:00)
[2019-12-27] MEDS ORDERED: glipizide 5mg tablet PO SCH (08:00)
[2019-12-27] MEDS ORDERED: lamoTRIgine 25mg tablet PO SCH (08:00)
[2019-12-27] MEDS ORDERED: metFORMIN 500mg tablet PO SCH (08:00)
[2019-12-27] MEDS ORDERED: clopidogrel 75mg tablet PO SCH (08:00)
[2019-12-27] MEDS ORDERED: citalopram 20mg tablet PO SCH (08:00)
[2019-12-27] MEDS ORDERED: metoprolol tartrate 50mg tablet PO SCH (08:00)
[2019-12-27] MEDS ORDERED: aspirin 325mg tablet PO SCH (08:00)
[2019-12-27] MEDS ORDERED: levoTHYROXINE 100mcg tablet PO SCH (08:00)
[2019-12-27] MEDS ORDERED: atorvastatin 20mg tablet PO SCH (08:00)
--- NOTE | 2019-12-27 09:00 | NUR ---
Pt interviewed by Lawrence from [facility] and he found pt to meet criteria for 5150. Pt calm and cooperative in bed.
--- NOTE | 2019-12-27 11:00 | NUR ---
Pt up x 2 to the bathroom, standing at bedside peeing in urinal. Pt currently sleeping without distress.
--- NOTE | 2019-12-27 13:00 | NUR ---
Pt laying in bed, awake without complaints. Received call from [facility] and they will be accepting him after lunch.
[2019-12-27] MEDS ORDERED: FURO40TA4 PO (14:59)
[2019-12-27] MEDS ORDERED: GLIM2TAB6 PO (15:09)
[2019-12-27] MEDS ORDERED: traZODone 50mg tablet PO SCH (21:00)
[2019-12-27] MEDS ORDERED: atorvastatin 10mg tablet PO SCH (21:00)
== END 2019-12-27 13:54 ==
LOC: ER 19:38
DX: R45.851 Suicidal ideations (principal); M25.551 Pain in right hip; I25.2 Old myocardial infarction; E87.1 Hypo-osmolality and hyponatremia; G89.29 Other chronic pain; I25.10 Atherosclerotic heart disease of native coronary artery without angina pectoris; E78.00 Pure hypercholesterolemia, unspecified; I12.9 Hypertensive chronic kidney disease with stage 1 through stage 4 chronic kidney disease, or unspecified chronic kidney disease; E11.22 Type 2 diabetes mellitus with diabetic chronic kidney disease; N18.9 Chronic kidney disease, unspecified; F32.9 Major depressive disorder, single episode, unspecified; Z72.0 Tobacco use; Z86.73 Personal history of transient ischemic attack (TIA), and cerebral infarction without residual deficits; Z98.890 Other specified postprocedural states; Z72.89 Other problems related to lifestyle; Z60.2 Problems related to living alone; Z79.01 Long term (current) use of anticoagulants; Z79.82 Long term (current) use of aspirin; Z79.899 Other long term (current) drug therapy
CPT/HCPCS: 36415; 80053; 80305; 80320; 81001; 82948; 84443; 85025; 99285; J7030

== ENCOUNTER 2020-03-28 20:14 | Inpatient (IN) | payer BC, MEDICAID ==
[~2020-03-28] VITALS: Ht 172.7 cm; Wt 77.3 kg
[~2020-03-28 20:14] MED LIST changes: -CITA20TA28 PO; +DULO60CA65 PO; +FURO40TA4 PO; -GABA-532 PO; +GABA300C PO; +GLIM2TAB6 PO; -GLIP10TA11 PO; +HYDR-4383 PO; -LAMO25TA5 PO; +LEVO100T PO; -LEVO100T9 PO; -METO50TA17 PO; +NICO-668 BC; -RAME8TAB15 PO; -SIMV-42 PO
--- NOTE | 2020-03-28 20:24 | NUR ---
Patient's sister Amber phone number [phone]
[2020-03-28] MEDS ORDERED: acetaminophen 325mg tablet PO ONE (20:40)
--- NOTE | 2020-03-28 21:15 | NUR ---
O2 DISCONTINUED. PT ON RA, WILL ASSESS TOLERANCE.
[2020-03-28 21:26] LABS: CLARITY,URINE CLEAR (Clear); COLOR,URINE YELLOW (Yellow); GLUCOSE, URINE NEGATIVE (Neg); KETONES,URINE NEGATIVE (Neg); LEUKOCYTE ESTERASE ,URINE NEGATIVE (Neg); NITRITES, URINE NEGATIVE (Neg); OCCULT BLOOD,URINE SMALL (Neg); PH,URINE 5.5 (4.8-8.0); PROTEIN,URINE >=300 mg/dl (Neg)
[2020-03-28 21:28] LABS: BASOPHILS # (AUTO) 0.1 X10'3 (0-0.2); BASOPHILS % (AUTO) 0.9 % (0-1); EOSINOPHILS # (AUTO) 0.2 X10'3 (0-0.9); EOSINOPHILS % (AUTO) 2.4 % (0-6); HEMATOCRIT 28.9 % (42.0-52.0); HEMOGLOBIN 9.8 g/dl (14.0-17.9); LYMPHOCYTES % (AUTO) 9.7 % (21-51); MEAN CORPUSCULAR HGB CONC 33.8 g/dL (33.0-36.5); MEAN CORPUSCULAR VOLUME 94.6 FL (78-98); MEAN PLATELET VOLUME 8.7 FL (7.4-10.4); MONOCYTES # (AUTO) 1.2 X10'3 (0-0.9); MONOCYTES % (AUTO) 11.8 % (2-12); NEUTROPHILS # (AUTO) 7.9 X10'3 (1.8-7.7); NEUTROPHILS % (AUTO) 75.2 % (42-75); PLATELET COUNT 147 X10'3 (140-440); RED BLOOD COUNT 3.05 X10'6 (4.70-6.10); RED CELL DISTRIBUTION WIDTH 14.7 % (11.5-14.5); WHITE BLOOD COUNT 10.5 X10'3 (4.5-11.0)
[2020-03-28 21:34] LABS: ALANINE AMINOTRANSFERASE 28 U/L (12-78); ALBUMIN 2.3 G/DL (3.4-5.0); ALBUMIN/GLOBULIN RATIO 0.5 (1.1-1.5); ALKALINE PHOSPHATASE 114 IU/L (46-116); ANION GAP 10 (8-16); ASPARTATE AMINO TRANSFERASE 26 U/L (10-37); BILIRUBIN,TOTAL 0.3 MG/DL (0.1-1.0); BLOOD UREA NITROGEN 51 MG/DL (7-18); BUN/CREATININE RATIO 17.9 (5.4-32.0); CALCIUM 8.2 MG/DL (8.5-10.1); CHLORIDE 101 MMOL/L (99-107); CREATININE 2.85 MG/DL (0.60-1.10); GLUCOSE 96 MG/DL (70-104); POTASSIUM 4.9 MMOL/L (3.5-5.1); SODIUM 132 MMOL/L (135-145); TOTAL PROTEIN 6.6 G/DL (6.4-8.2); eGFR 23 ML/MIN
[2020-03-28 21:41] LABS: UA COLLECTION TYPE STRAIGHT CATH
[2020-03-28 21:42] LABS: AMORPHOUS URATES 1+; BACTERIA,URINE FEW /HPF (Neg); RBC,URINE 0-2 /HPF (0-2); SQUAMOUS EPITHELIAL CELL,UR FEW /LPF (FEW)
[2020-03-28] MEDS ORDERED: vancomycin/NS 1 GM ADD-VANTAGE 250 ML IV ONE (21:55)
[2020-03-28] MEDS ORDERED: piperacillin/tazo 3.375gm/50ml 50 ML IV ONE (21:55)
--- NOTE | 2020-03-28 22:23 | NUR ---
Pt continues to maintain SpO2 >95% on room air. No s/sx of respiratory distress. Will continue to monitor.
[2020-03-28] MEDS ORDERED: SERT50TA10 PO (23:08)
[2020-03-28] MEDS ORDERED: GABA300C PO (23:13)
[2020-03-28] MEDS ORDERED: TRAZ-251 PO (23:13)
[2020-03-29] VITALS (21 sets, daily range): BP systolic 96–163; BP diastolic 44–79
--- NOTE | 2020-03-29 00:10 | NUR ---
Art line inserted to right radial artery by Md Campo pt tolerated well.
[2020-03-29 00:21] LABS: URINE AMPHETAMINE SCREEN NEGATIVE (Neg); URINE BARBITUATE SCREEN NEGATIVE (Neg); URINE BENZODIAZEPINES SCREEN NEGATIVE (Neg); URINE CANNABINOID SCREEN NEGATIVE (Neg); URINE COCAINE SCREEN NEGATIVE (Neg); URINE METHADONE SCREEN NEGATIVE (Neg); URINE OPIATE SCREEN NEGATIVE (Neg); URINE PHENCYCLIDINE SCREEN NEGATIVE (Neg)
--- NOTE | 2020-03-29 00:36 | NUR ---
Central line placed by Md Campo pt tolerated well.
[2020-03-29] MEDS ORDERED: phenylephrine inj 50 MG in normal saline 250ml IV soln 245 ML IV PRN (00:37)
[2020-03-29] MEDS ORDERED: LIDOcaine 2% 10ml TOPICAL JELLY (Urojet) TP ONE (00:40)
[2020-03-29] MEDS ORDERED: NORepinephrine 8mg/ 250ml NS 250 ML IV PRN ×2 (00:42→02:03)
[2020-03-29] MEDS ORDERED: acetaminophen 325mg tablet PO PRN ×2 (01:20)
[2020-03-29] MEDS ORDERED: ondansetron/PF 4mg/2ml inj IV PRN (01:20)
[2020-03-29] MEDS ORDERED: acetaminophen 650mg rectal suppository RC PRN (01:20)
[2020-03-29 01:35] LABS: OXYGEN SATURATION (MIXED VEN) 74.8 % (60-80); PO2 MIXED VENOUS (TEMP COR) 45.1 mmHg (35-46)
[2020-03-29 01:35] LABS: ABG BASE EXCESS -9.5 mmol/L (-2.0-2.0); ABG HCO3 16.5 mmol/L (22.0-26.0); ABG OXYGEN SATURATION 95.7 % (94-97); ABG PCO2 (T) 36.9 mmHg (35.0-48.0); ABG PO2 (T) 91.9 mmHg (75.0-100.0); FO2Hb 93.8 % (94-97); PATIENT TEMPERATURE 37.4; TOTAL HEMOGLOBIN 11.3 G/dl (14.0-18.0)
[2020-03-29] MEDS: normal saline 1000ml 1,000 ML IV SCH ×2 (02:19→12:14)
[2020-03-29 02:34] LABS: EOSINOPHILS # (AUTO) 0.3 X10'3 (0-0.9); WHITE BLOOD COUNT 8.8 X10'3 (4.5-11.0)
[2020-03-29 02:35] LABS: BASOPHILS # (AUTO) 0.1 X10'3 (0-0.2); BASOPHILS % (AUTO) 0.7 % (0-1); EOSINOPHILS % (AUTO) 3.7 % (0-6); HEMATOCRIT 30.9 % (42.0-52.0); HEMOGLOBIN 10.5 g/dl (14.0-17.9); LYMPHOCYTES % (AUTO) 11.9 % (21-51); MEAN CORPUSCULAR HEMOGLOBIN 31.8 PG (27.0-31.0); MEAN CORPUSCULAR HGB CONC 33.9 g/dL (33.0-36.5); MEAN CORPUSCULAR VOLUME 93.8 FL (78-98); MEAN PLATELET VOLUME 8.4 FL (7.4-10.4); MONOCYTES # (AUTO) 1.1 X10'3 (0-0.9); MONOCYTES % (AUTO) 13.1 % (2-12); NEUTROPHILS # (AUTO) 6.2 X10'3 (1.8-7.7); NEUTROPHILS % (AUTO) 70.6 % (42-75); PLATELET COUNT 124 X10'3 (140-440); RED BLOOD COUNT 3.29 X10'6 (4.70-6.10); RED CELL DISTRIBUTION WIDTH 14.8 % (11.5-14.5)
[2020-03-29 02:39] LABS: HEMOGLOBIN A1C 5.9 % (4.5-6.2)
[2020-03-29 02:50] LABS: ACETAMINOPHEN < 2.0 UG/ML (10-30); ALANINE AMINOTRANSFERASE 21 U/L (12-78); ALBUMIN/GLOBULIN RATIO 0.5 (1.1-1.5); ALKALINE PHOSPHATASE 99 IU/L (46-116); ANION GAP 11 (8-16); ASPARTATE AMINO TRANSFERASE 25 U/L (10-37); BILIRUBIN,TOTAL 0.4 MG/DL (0.1-1.0); BLOOD UREA NITROGEN 46 MG/DL (7-18); BUN/CREATININE RATIO 18.2 (5.4-32.0); CALCIUM 7.5 MG/DL (8.5-10.1); CHLORIDE 105 MMOL/L (99-107); CREATININE 2.53 MG/DL (0.60-1.10); GLUCOSE 151 MG/DL (70-104); MAGNESIUM 2.1 MG/DL (1.5-2.4); PHOSPHORUS 3.8 MG/DL (2.3-4.5); POTASSIUM 4.9 MMOL/L (3.5-5.1); SODIUM 134 MMOL/L (135-145); TOTAL CARBON DIOXIDE 17.6 MMOL/L (24-32); TOTAL PROTEIN 5.8 G/DL (6.4-8.2); TROPONIN I < 0.04 NG/ML (0.0-0.05); eGFR 26 ML/MIN
[2020-03-29 03:06] LABS: ETHANOL < 0.010 GM/DL (0.0-0.010)
--- NOTE | 2020-03-29 03:15 | NUR ---
I have received report from MARIE Tejeda and had the opportunity to ask questions, waiting on pt to be transported.
--- NOTE | 2020-03-29 05:00 | NUR ---
bear hugger placed on patient for 35.4 temperature
--- NOTE | 2020-03-29 06:15 | NUR ---
Patient in room CICU 2009. I have received report from RN and had the opportunity to ask questions and assume patient care.
--- NOTE | 2020-03-29 06:42 | NUR ---
Problems reprioritized. Patient report given, questions answered & plan of care reviewed with MARIE Covarrubias.
[2020-03-29] MEDS: docusate sod 100mg capsule PO SCH ×2 (08:00→19:18)
[2020-03-29] MEDS: piperacillin/tazo 3.375gm/50ml 50 ML IV SCH ×3 (08:36→23:05)
[2020-03-29] MEDS: heparin, porcine 5000 units/ml vial SQ SCH ×2 (08:43→19:19)
[2020-03-29] MEDS: pantoprazole 40 MG vial IV SCH (08:44)
--- NOTE | 2020-03-29 13:01 | NUR ---
PT reports having neuropathy in his feet which is 10/10. He is requesting gabapentin his usual home medication. Spoke to charge and called Alexis Archuleta. She will address this issue SUKHDEV.
--- NOTE | 2020-03-29 13:16 | NUR ---
DM Consult "mechanical soft": Pt A1C 5.9 and not appropriate for DM ed at this time. Advanced to clear liquids from NPO today. Will continue to monitor. Addendum: 03/29/20 at [address] Amended: Links added.
[2020-03-29] MEDS ORDERED: fentaNYL/PF 50MCG/1 ML 2ML syringe IV ONE (13:35)
[2020-03-29] MEDS ORDERED: SERT100T10 PO (13:47)
[2020-03-29] MEDS ORDERED: QUET100T33 PO (13:56)
[2020-03-29] MEDS ORDERED: nitroGLYCERIN 0.4mg SUBLingual tab SL PRN (14:50)
[2020-03-29] MEDS ORDERED: gabapentin 100mg capsule PO ONE (15:28)
[2020-03-29] MEDS: gabapentin 100mg capsule PO SCH ×2 (15:32→19:18)
[2020-03-29] MEDS ORDERED: vancomycin/NS 1 GM ADD-VANTAGE 250 ML IV SCH (16:00)
--- NOTE | 2020-03-29 18:15 | NUR ---
Patient in room CICU 2009. I have received report from Marci SALAZAR and had the opportunity to ask questions and assume patient care.
[2020-03-29] MEDS: clopidogrel 75mg tablet PO SCH (18:33)
[2020-03-29] MEDS: atorvastatin 20mg tablet PO SCH (18:33)
[2020-03-29] MEDS: levoTHYROXINE 100mcg tablet PO SCH (18:33)
--- NOTE | 2020-03-29 18:35 | NUR ---
Problems reprioritized. Patient report given, questions answered & plan of care reviewed with RN.
[2020-03-29] MEDS: lactobacillus rhamnosus 10,000 MMU CELLS/CAPSULE PO SCH (19:18)
[2020-03-29] MEDS: nicotine 21mg patch - 24 hr TD SCH (19:43)
[2020-03-29] MEDS: quetiapine 100mg tablet PO SCH (20:06)
[2020-03-29] MEDS: traZODone 50mg tablet PO PRN (20:06)
[2020-03-29] MEDS: sodium bicarbonate (8.4%) inj. 150 MEQ in dextrose 5%-water 1,000 ML IV SCH (21:21)
--- NOTE | 2020-03-29 22:30 | NUR ---
Problems reprioritized. Patient report given, questions answered & plan of care reviewed with Eugenia SALAZAR.
--- NOTE | 2020-03-29 22:50 | NUR ---
PT ARRIVED FROM ICU. PT HAS BEEN REORIENTED TO THE ROOM. 2RN SKIN CHECK PERFORMED. RECEIVED REPORT FROM MARIE GARVEY PRIOR TO PT'S ARRIVAL.
[2020-03-30 06:00] VITALS: BP 138/72
--- NOTE | 2020-03-30 06:10 | NUR ---
received report from mamie uribe
--- NOTE | 2020-03-30 06:16 | NUR ---
Problems reprioritized. Patient report given, questions answered & plan of care reviewed with MARIE PATEL.
[2020-03-30 06:54] LABS: BASOPHILS # (AUTO) 0.1 X10'3 (0-0.2); BASOPHILS % (AUTO) 1.1 % (0-1); EOSINOPHILS # (AUTO) 0.4 X10'3 (0-0.9); EOSINOPHILS % (AUTO) 5.9 % (0-6); HEMATOCRIT 29.9 % (42.0-52.0); LYMPHOCYTES # (AUTO) 0.6 X10'3 (1.1-4.8); LYMPHOCYTES % (AUTO) 9.5 % (21-51); MEAN CORPUSCULAR HEMOGLOBIN 31.6 PG (27.0-31.0); MEAN CORPUSCULAR HGB CONC 33.5 g/dL (33.0-36.5); MEAN CORPUSCULAR VOLUME 94.3 FL (78-98); MEAN PLATELET VOLUME 8.5 FL (7.4-10.4); MONOCYTES # (AUTO) 0.7 X10'3 (0-0.9); MONOCYTES % (AUTO) 11.4 % (2-12); NEUTROPHILS # (AUTO) 4.7 X10'3 (1.8-7.7); NEUTROPHILS % (AUTO) 72.1 % (42-75); PLATELET COUNT 123 X10'3 (140-440); RED BLOOD COUNT 3.18 X10'6 (4.70-6.10); RED CELL DISTRIBUTION WIDTH 14.9 % (11.5-14.5); WHITE BLOOD COUNT 6.5 X10'3 (4.5-11.0)
[2020-03-30 07:07] LABS: ALANINE AMINOTRANSFERASE 24 U/L (12-78); ALBUMIN 1.9 G/DL (3.4-5.0); ALBUMIN/GLOBULIN RATIO 0.5 (1.1-1.5); ALKALINE PHOSPHATASE 103 IU/L (46-116); ANION GAP 8 (8-16); ASPARTATE AMINO TRANSFERASE 25 U/L (10-37); BILIRUBIN,TOTAL 0.3 MG/DL (0.1-1.0); BLOOD UREA NITROGEN 32 MG/DL (7-18); BUN/CREATININE RATIO 15.2 (5.4-32.0); CALCIUM 8.1 MG/DL (8.5-10.1); CHLORIDE 108 MMOL/L (99-107); CREATININE 2.11 MG/DL (0.60-1.10); GLUCOSE 99 MG/DL (70-104); MAGNESIUM 2.1 MG/DL (1.5-2.4); PHOSPHORUS 3.3 MG/DL (2.3-4.5); POTASSIUM 4.7 MMOL/L (3.5-5.1); SODIUM 137 MMOL/L (135-145); TOTAL CARBON DIOXIDE 21.3 MMOL/L (24-32); TOTAL PROTEIN 5.8 G/DL (6.4-8.2); eGFR 32 ML/MIN
[2020-03-30] MEDS: clopidogrel 75mg tablet PO SCH (08:10)
[2020-03-30] MEDS: gabapentin 100mg capsule PO SCH ×2 (08:10→19:23)
[2020-03-30] MEDS: levoTHYROXINE 100mcg tablet PO SCH (08:10)
[2020-03-30] MEDS: atorvastatin 20mg tablet PO SCH (08:12)
[2020-03-30] MEDS: docusate sod 100mg capsule PO SCH ×2 (08:12→19:23)
[2020-03-30] MEDS: lactobacillus rhamnosus 10,000 MMU CELLS/CAPSULE PO SCH ×2 (08:12→19:23)
[2020-03-30] MEDS: heparin, porcine 5000 units/ml vial SQ SCH ×2 (08:14→19:29)
[2020-03-30] MEDS: pantoprazole 40 MG vial IV SCH (08:16)
[2020-03-30] MEDS: nicotine 21mg patch - 24 hr TD SCH (08:19)
[2020-03-30] MEDS: piperacillin/tazo 3.375gm/50ml 50 ML IV SCH (08:22)
[2020-03-30 10:00] VITALS: BP 129/70
[2020-03-30] MEDS: sodium bicarbonate (8.4%) inj. 150 MEQ in dextrose 5%-water 1,000 ML IV SCH ×2 (14:04→19:05)
[2020-03-30] MEDS: cephalexin 500mg capsule PO SCH ×2 (14:05→19:23)
[2020-03-30 18:00] VITALS: BP 161/89
--- NOTE | 2020-03-30 18:23 | NUR ---
GAVE REPORT TO MARIE YEUNG
[2020-03-30] MEDS ORDERED: NICOTINE POLACRILEX 4 MG LOZENGE BC PRN (19:15)
[2020-03-30] MEDS ORDERED: LORazepam 1 MG tablet PO ONE (19:15)
[2020-03-30] MEDS: NICOTINE POLACRILEX 2 MG LOZENGE BC PRN (19:47)
[2020-03-30] MEDS: traZODone 50mg tablet PO PRN (20:39)
[2020-03-30] MEDS: quetiapine 100mg tablet PO SCH (20:39)
[2020-03-30 22:00] VITALS: BP 129/75
[2020-03-31] MEDS: cephalexin 500mg capsule PO SCH ×4 (01:05→20:08)
[2020-03-31] MEDS: NICOTINE POLACRILEX 2 MG LOZENGE BC PRN ×4 (01:05→16:26)
[2020-03-31] MEDS ORDERED: lactulose 20gm/30ml cup PO PRN (01:20)
[2020-03-31] MEDS: sodium bicarbonate (8.4%) inj. 150 MEQ in dextrose 5%-water 1,000 ML IV SCH ×2 (02:15→18:05)
[2020-03-31 06:00] VITALS: BP 170/97
[2020-03-31 06:42] LABS: BASOPHILS # (AUTO) 0.1 X10'3 (0-0.2); BASOPHILS % (AUTO) 0.8 % (0-1); EOSINOPHILS # (AUTO) 0.2 X10'3 (0-0.9); EOSINOPHILS % (AUTO) 2.6 % (0-6); HEMATOCRIT 34.7 % (42.0-52.0); HEMOGLOBIN 11.8 g/dl (14.0-17.9); LYMPHOCYTES # (AUTO) 0.6 X10'3 (1.1-4.8); LYMPHOCYTES % (AUTO) 7.4 % (21-51); MEAN CORPUSCULAR HEMOGLOBIN 31.3 PG (27.0-31.0); MEAN CORPUSCULAR HGB CONC 33.9 g/dL (33.0-36.5); MEAN CORPUSCULAR VOLUME 92.4 FL (78-98); MEAN PLATELET VOLUME 8.6 FL (7.4-10.4); MONOCYTES % (AUTO) 12.1 % (2-12); NEUTROPHILS # (AUTO) 6.2 X10'3 (1.8-7.7); NEUTROPHILS % (AUTO) 77.1 % (42-75); PLATELET COUNT 153 X10'3 (140-440); RED BLOOD COUNT 3.75 X10'6 (4.70-6.10); RED CELL DISTRIBUTION WIDTH 14.9 % (11.5-14.5); WHITE BLOOD COUNT 8.1 X10'3 (4.5-11.0)
--- NOTE | 2020-03-31 06:44 | NUR ---
Problems reprioritized. Patient report given, questions answered & plan of care reviewed with MARIE MOE.
--- NOTE | 2020-03-31 06:53 | NUR ---
Patient in room ORTHO 4022A. I have received report from MARIE Ward and had the opportunity to ask questions and assume patient care.
[2020-03-31 07:09] LABS: ALANINE AMINOTRANSFERASE 30 U/L (12-78); ALBUMIN 2.3 G/DL (3.4-5.0); ALBUMIN/GLOBULIN RATIO 0.5 (1.1-1.5); ALKALINE PHOSPHATASE 124 IU/L (46-116); ANION GAP 10 (8-16); ASPARTATE AMINO TRANSFERASE 27 U/L (10-37); BILIRUBIN,TOTAL 0.5 MG/DL (0.1-1.0); BLOOD UREA NITROGEN 22 MG/DL (7-18); BUN/CREATININE RATIO 11.1 (5.4-32.0); CALCIUM 8.7 MG/DL (8.5-10.1); CHLORIDE 102 MMOL/L (99-107); CREATININE 1.98 MG/DL (0.60-1.10); GLUCOSE 166 MG/DL (70-104); MAGNESIUM 1.9 MG/DL (1.5-2.4); PHOSPHORUS 2.7 MG/DL (2.3-4.5); POTASSIUM 4.1 MMOL/L (3.5-5.1); SODIUM 136 MMOL/L (135-145); TOTAL CARBON DIOXIDE 24.2 MMOL/L (24-32); TOTAL PROTEIN 6.8 G/DL (6.4-8.2); eGFR 35 ML/MIN
[2020-03-31] MEDS: docusate sod 100mg capsule PO SCH ×2 (08:00→20:00)
[2020-03-31] MEDS: pantoprazole 40mg Tablet.DR PO SCH (09:28)
[2020-03-31] MEDS: lactobacillus rhamnosus 10,000 MMU CELLS/CAPSULE PO SCH ×2 (09:29→20:09)
[2020-03-31] MEDS: gabapentin 100mg capsule PO SCH ×2 (09:29→20:08)
[2020-03-31] MEDS: atorvastatin 20mg tablet PO SCH (09:29)
[2020-03-31] MEDS: levoTHYROXINE 100mcg tablet PO SCH (09:30)
[2020-03-31] MEDS: clopidogrel 75mg tablet PO SCH (09:30)
[2020-03-31] MEDS: heparin, porcine 5000 units/ml vial SQ SCH ×2 (09:31→20:14)
[2020-03-31 10:00] VITALS: BP 130/74
[2020-03-31] MEDS ORDERED: VANCOMYCIN LEVEL IV ONE (15:30)
[2020-03-31 18:00] VITALS: BP 146/69
[2020-03-31] MEDS: quetiapine 100mg tablet PO SCH (20:08)
[2020-03-31] MEDS: traZODone 50mg tablet PO PRN (20:08)
[2020-03-31 22:00] VITALS: BP 138/83
[2020-04-01] MEDS: NICOTINE POLACRILEX 2 MG LOZENGE BC PRN ×3 (00:02→14:15)
--- NOTE | 2020-04-01 00:49 | NUR ---
Responded to tabs alarm going off in patient room, which is in place for patient safety. Pt had transferred self from recliner back to bed without assistance. Pt stated that he knows he is not supposed to get up without assistance but wanted to get back in bed. Patient stated he knows to use call light but could not find it, call light was within reach attached to TV for easy viability. Pt laying in bed comfortable at this time. Pt educated on where his call light is and bed alarm is on for patient safety.
[2020-04-01] MEDS: cephalexin 500mg capsule PO SCH ×3 (03:13→14:14)
[2020-04-01] MEDS: sodium bicarbonate (8.4%) inj. 150 MEQ in dextrose 5%-water 1,000 ML IV SCH (03:18)
[2020-04-01 06:33] VITALS: BP 141/88
--- NOTE | 2020-04-01 06:34 | NUR ---
Patient in room ORTHO 4022A. I have received report from MARIE Ward and had the opportunity to ask questions and assume patient care.
[2020-04-01 06:42] LABS: BASOPHILS # (AUTO) 0.1 X10'3 (0-0.2); BASOPHILS % (AUTO) 0.9 % (0-1); EOSINOPHILS # (AUTO) 0.4 X10'3 (0-0.9); EOSINOPHILS % (AUTO) 6.2 % (0-6); HEMATOCRIT 33.5 % (42.0-52.0); HEMOGLOBIN 11.2 g/dl (14.0-17.9); LYMPHOCYTES # (AUTO) 0.9 X10'3 (1.1-4.8); LYMPHOCYTES % (AUTO) 14.4 % (21-51); MEAN CORPUSCULAR HEMOGLOBIN 31.2 PG (27.0-31.0); MEAN CORPUSCULAR HGB CONC 33.4 g/dL (33.0-36.5); MEAN CORPUSCULAR VOLUME 93.5 FL (78-98); MEAN PLATELET VOLUME 8.6 FL (7.4-10.4); MONOCYTES # (AUTO) 0.6 X10'3 (0-0.9); MONOCYTES % (AUTO) 10.2 % (2-12); NEUTROPHILS # (AUTO) 4.1 X10'3 (1.8-7.7); NEUTROPHILS % (AUTO) 68.3 % (42-75); PLATELET COUNT 166 X10'3 (140-440); RED BLOOD COUNT 3.59 X10'6 (4.70-6.10); RED CELL DISTRIBUTION WIDTH 15.4 % (11.5-14.5); WHITE BLOOD COUNT 6.1 X10'3 (4.5-11.0)
[2020-04-01 06:53] LABS: ALANINE AMINOTRANSFERASE 29 U/L (12-78); ALBUMIN 2.3 G/DL (3.4-5.0); ALBUMIN/GLOBULIN RATIO 0.5 (1.1-1.5); ALKALINE PHOSPHATASE 114 IU/L (46-116); ANION GAP 9 (8-16); ASPARTATE AMINO TRANSFERASE 21 U/L (10-37); BILIRUBIN,TOTAL 0.4 MG/DL (0.1-1.0); BLOOD UREA NITROGEN 22 MG/DL (7-18); BUN/CREATININE RATIO 11.4 (5.4-32.0); CALCIUM 8.6 MG/DL (8.5-10.1); CHLORIDE 105 MMOL/L (99-107); CREATININE 1.93 MG/DL (0.60-1.10); GLUCOSE 123 MG/DL (70-104); MAGNESIUM 2.1 MG/DL (1.5-2.4); PHOSPHORUS 3.8 MG/DL (2.3-4.5); POTASSIUM 4.1 MMOL/L (3.5-5.1); SODIUM 141 MMOL/L (135-145); TOTAL CARBON DIOXIDE 26.7 MMOL/L (24-32); TOTAL PROTEIN 6.8 G/DL (6.4-8.2); eGFR 36 ML/MIN
[2020-04-01] MEDS: docusate sod 100mg capsule PO SCH (08:00)
[2020-04-01] MEDS: pantoprazole 40mg Tablet.DR PO SCH (09:08)
[2020-04-01] MEDS: lactobacillus rhamnosus 10,000 MMU CELLS/CAPSULE PO SCH (09:09)
[2020-04-01] MEDS: atorvastatin 20mg tablet PO SCH (09:10)
[2020-04-01] MEDS: levoTHYROXINE 100mcg tablet PO SCH (09:10)
[2020-04-01] MEDS: clopidogrel 75mg tablet PO SCH (09:11)
[2020-04-01] MEDS: gabapentin 100mg capsule PO SCH (09:12)
[2020-04-01] MEDS: heparin, porcine 5000 units/ml vial SQ SCH (09:13)
--- NOTE | 2020-04-01 11:51 | NUR ---
chart review and medication admin done by student with supervision by licensed personnel
[2020-04-01 13:00] VITALS: BP 136/71
--- NOTE | 2020-04-01 14:46 | NUR ---
called report to Shayy at [facility], all questions answered. P/U at 1500.
--- NOTE | 2020-04-01 14:49 | NUR ---
iv removed, pt used urinal, bladder scan was used post void with 13ml residual. pt prepared for transfer to [facility].
--- NOTE | 2020-04-01 16:29 | NUR ---
fran picked pt up at 1550 in stable condition
== END 2020-04-01 15:50 | DRG 720 ==
LOC: ER 20:14 → ED HOLD 03-29 01:20 → CICU 2S 03-29 03:46 → ORTHO 4S 03-29 22:46
PROVIDERS: ADMIT Internal Medicine Critical Care Medicine; ATTEND Internal Medicine Critical Care Medicine
DX: A41.9 Sepsis, unspecified organism (principal); B96.1 Klebsiella pneumoniae [K. pneumoniae] as the cause of diseases classified elsewhere; N17.0 Acute kidney failure with tubular necrosis; E03.9 Hypothyroidism, unspecified; E11.22 Type 2 diabetes mellitus with diabetic chronic kidney disease; E78.00 Pure hypercholesterolemia, unspecified; E78.5 Hyperlipidemia, unspecified; E87.2 Acidosis; F12.90 Cannabis use, unspecified, uncomplicated; F17.200 Nicotine dependence, unspecified, uncomplicated; G93.40 Encephalopathy, unspecified; I13.0 Hypertensive heart and chronic kidney disease with heart failure and stage 1 through stage 4 chronic kidney disease, or unspecified chronic kidney disease; I25.10 Atherosclerotic heart disease of native coronary artery without angina pectoris; I50.9 Heart failure, unspecified; J44.9 Chronic obstructive pulmonary disease, unspecified; Z96.642 Presence of left artificial hip joint; Z79.899 Other long term (current) drug therapy; N18.3 Chronic kidney disease, stage 3 (moderate); R65.21 Severe sepsis with septic shock; Z20.828 Contact with and (suspected) exposure to other viral communicable diseases; Z66 Do not resuscitate; Z79.02 Long term (current) use of antithrombotics/antiplatelets; I69.354 Hemiplegia and hemiparesis following cerebral infarction affecting left non-dominant side; I25.2 Old myocardial infarction; Z95.1 Presence of aortocoronary bypass graft; F32.9 Major depressive disorder, single episode, unspecified
CPT/HCPCS: 36415; 36600; 70450; 71045; 71250; 73502; 74176; 80053; 80305; 80320; 80329; 81001; 82140; 82803; 82810; 82948; 83036; 83605; 83735; 84100; 84145; 84439; 84443; 84484; 85018; 85025; 85610; 87040; 87077; 87081; 87088; 87186; 87635; 93005; 93306; 93880; 97110; 97116; 97161; 97530; 99291; C9113; G0378; J1644; J2543; J3010; J3370; J7030